=== PATIENT | male | born 2000 | race Caucasian/White ===

== ENCOUNTER 2020-02-18 15:13 | Emergency (ER) | payer OTHER, SELFPAY ==
[2020-02-18 15:23] VITALS: BP 137/77; PULSE 93; RESP 18; TEMP 36.8; O2SAT 98
--- NOTE | 2020-02-18 16:04 | ED.MALEGU ---
HPI - Male Genitourinary General Chief complaint: Urogenital-Male Stated complaint: std testing Time Seen by Provider: 02/18/20 15:49 Source: patient, RN notes reviewed and police Mode of arrival: ambulatory Limitations: no limitations History of Present Illness HPI Narrative: Patient presents today requesting STD testing. States that he does not have any symptoms. He has a new partner that he has not yet had intercourse with, that would like him to get tested prior to them having intercourse initially. States that this new partner does not have any symptoms at this time. Patient has been instructed that we can perform gonorrhea, chlamydia, and trichomonas, but no other tests here. Patient would like to proceed with those test today. Patient had unprotected intercourse with a different partner approximately 2 months ago, but none since that time. MD Complaint: other (Requesting STD testing) Related Data Home Medications Medication Instructions Recorded Confirmed No Home Medications 02/18/20 02/18/20 Allergies Allergy/AdvReac Type Severity Reaction Status Date / Time No Known Allergies Allergy Verified 02/18/20 15:32 Review of Systems Review of Systems: Narrative: CONSTITUTIONAL: Denies body aches, fever, chills, or sweats. EYES: Denies visual changes, redness, or discharge. ENT: Denies rhinorrhea, congestion, sore throat, or otalgia. CARDIOVASCULAR: Denies chest pain, palpitations, or edema. RESPIRATORY: Denies cough or dyspnea. GASTROINTESTINAL: Denies abdominal pain, nausea, vomiting, or diarrhea. GENITOURINARY: Denies dysuria or hematuria. SKIN: Denies rash, itching, or wounds. MUSCULOSKELETAL: Denies back pain, joint pain, or myalgia. NEUROLOGIC: Denies headache, numbness, tingling, or weakness. PSYCH: Denies depression or anxiety. PMFSH Comments At time of signature, I have reviewed and agree with nursing past medical, surgical, social and family history unless otherwise noted. Please see nursing chart for further information. There is no relevant family history pertinent to the presenting complaint Exam Narrative: Exam Narrative: GENERAL: Well-appearing, well-nourished, and in no acute distress. HEAD: Normocephalic, atraumatic. EYES: EOMI. No redness or drainage. Conjunctivae normal. ENT: Mucous membranes pink and moist. NECK: Normal AROM. CHEST: No respiratory distress. : Deferred MUSCULOSKELETAL: No bony tenderness. EXTREMITIES: Normal range of motion. No edema. SKIN: Warm, dry, no rash. Capillary refill normal. Normal skin turgor. NEURO: No focal deficits. Alert and oriented x3. Gait steady. PSYCH: Normal affect. No signs of depression or anxiety. Course Vital Signs Vital signs: Vital Signs Temperature 98.2 F 02/18/20 15:23 Pulse Rate 93 02/18/20 15:23 Respiratory Rate 18 02/18/20 15:23 Blood Pressure 137/77 02/18/20 15:23 Pulse Oximetry 98 02/18/20 15:23 Temperature 98.2 F 02/18/20 15:23 Pulse Rate 93 02/18/20 15:23 Respiratory Rate 18 02/18/20 15:23 Blood Pressure 137/77 02/18/20 15:23 Pulse Oximetry 98 02/18/20 15:23 Reviewed. Pt has been instructed to follow up with his PCP regarding his elevated blood pressure today. MDM - Male Genitourinary MDM Narrative Medical decision making narrative: Long discussion with patient regarding capabilities of [facility], expectations for results. He opts to be treated if results are positive instead of being treated at this time. Understands that if he wants to be fully screened before entering into a new sexual relationship, he needs to seek further testing at the resources provided. He agrees. Differential Diagnosis Differential diagnosis: Likely other (Gonorrhea, chlamydia, trichomonas, STD screening) Lab Data Labs: Urine Characteristics Clear Critical Care Time Critical Care Time Critical Care Time: No Discharge Plan Disch
== END 2020-02-18 16:10 | disposition home or self-care (01) ==
PROVIDERS: Emergency Provider Nurse Practitioner; PCP Pediatrics
DX: Z11.3 Encounter for screening for infections with a predominantly sexual mode of transmission (principal)
CPT/HCPCS: 87491; 87591; 87661; 99203; G0463

== ENCOUNTER 2022-06-06 12:57 | Outpatient (CLI) | payer OTHER, SELFPAY ==
--- NOTE | ~2022-06-06 | CT_ITS ---
CT of the Abdomen and Pelvis: Indication: Abdominal pain Technique: 2.5 mm axial scans were obtained through the abdomen and pelvis following intravenous adm inistration of 100 cc of Omnipaque 350. Dose reduction technique was used on this scan by utilizing a utomated exposure control and iterative reconstruction technique. The dose-length product (DLP) was 1 551.83 mGy-cm. Findings: Scans through the lung bases are unremarkable. The liver, spleen, pancreas, gallbladder, adrenals and kidneys are within normal limits. No evidence of aortic aneurysm. No lymphadenopathy. No bowel obstruction or bowel wall thickening. There is no evidence to suggest acute appendicitis. Images through the pelvis were performed. Urinary bladder unremarkable. Prostate gland and seminal ve sicles are unremarkable No ascites. Impression: No significant abnormalities seen. Reviewed, dictated and finalized at [facility]. Impression: No significant abnormalities seen.
== END 2022-06-06 12:58 | disposition home or self-care (01) ==
PROVIDERS: PCP Emergency Medicine; Visit Provider Emergency Medicine
DX: R10.9 Unspecified abdominal pain (principal); R10.84 Generalized abdominal pain
CPT/HCPCS: 74177; Q9967

== ENCOUNTER 2023-05-08 12:37 | Emergency (ER) | payer OTHER, SELFPAY ==
[2023-05-08 12:47] VITALS: BP 147/88; PULSE 104; RESP 20; TEMP 36.4; O2SAT 100
[2023-05-08 15:25] VITALS: BP 156/99; PULSE 96; RESP 17; O2SAT 100
[2023-05-08 17:58] VITALS: BP 132/87; PULSE 88; RESP 15; O2SAT 100
--- NOTE | 2023-05-08 18:57 | ED.GENADULT ---
HPI - General Adult General Chief complaint: Wound/Laceration Stated complaint: TAIL BONE INCISION IS BLEEDING Time Seen by Provider: 05/08/23 17:03 Source: patient Mode of arrival: ambulatory Limitations: no limitations History of Present Illness HPI narrative: This is a 22-year-old male who presents to the ED chief complaint of open surgical wound for the past couple of days. Reports bleeding from the wound area. Patient reports he had history of pilonidal cyst that was operated on 2 years ago. He reports intermittent problems with this incision site ever since. Patient reports the initial procedure was unsuccessful and he ended up developing an abscess in the area. He reports he had a 2nd procedure but is feels like the wound has never been healed since. He is here today because it started bleeding. Denies any nausea, vomiting, fevers, chills. Denies any surrounding redness or swelling in the area. States it is minimally painful. Related Data Allergies Allergy/AdvReac Type Severity Reaction Status Date / Time No Known Allergies Allergy Verified 05/08/23 16:29 Review of Systems Review of Systems: All systems as dictated in HPI Exam Narrative: GENERAL: Well-appearing, well-nourished, and in no acute distress. HEAD: Normocephalic, atraumatic. EYES: PERRLA and EOMI. ENT: Nares clear, no rhinorrhea or epistaxis. Mucous membranes moist. Oropharynx without tonsillar hypertrophy exudate or other lesions. NECK: Supple. No adenopathy or masses. CHEST: No respiratory distress. Clear to auscultation. No wheezes rales or rhonchi HEART: Regular rate and rhythm. No murmur heard. Normal peripheral pulses. ABDOMEN: Soft, nontender, nondistended, normal active bowel sounds. MSK: Normal range of motion. No edema. SKIN: There is an open 2 cm record, linear wound to the sacral/intergluteal cleft. No surrounding redness. No warmth or tenderness. No purulent drainage. No active bleeding. NEURO: Alert and oriented x3. No focal deficits. PSYCH: Normal mood and affect. Course Vital Signs Vital signs: Vital Signs Temperature 97.5 F L 05/08/23 12:47 Pulse Rate 104 H 05/08/23 12:47 Respiratory Rate 20 05/08/23 12:47 Blood Pressure 147/88 H 05/08/23 12:47 Pulse Oximetry 100 02/13/24 12:47 Temperature 97.5 F L 05/08/23 12:47 Pulse Rate 81 05/08/23 19:38 Respiratory Rate 17 05/08/23 19:38 Blood Pressure 133/81 05/08/23 19:38 Pulse Oximetry 100 05/08/23 19:38 Medical Decision Making MDM Narrative Medical decision making narrative: This is a 22-year-old male who presents to the ED with chief complaint an open ulcer surgical wound to the sacral area. History of pilonidal cysts. Vitals are normal. Exam does show 2 cm open wound to the sacral area. There is no evidence of infection on exam. No bleeding currently. Advise the patient that he will need to have this looked at by a surgeon. Do not feel comfortable primarily closing this wound in the emergency department today. We will place some Surgicel and gauze dressing. Surgical referral given. Prophylactic antibiotics started. pt will be discharged in stable condition. Return precautions given and supportive measures discussed. Pt is understanding and agreeable with plan for discharge and follow-up with PCP/surgeon. Vital Signs Vital Signs: Vital Signs Temperature 97.5 F L 05/08/23 12:47 Pulse Rate 104 H 05/08/23 12:47 Respiratory Rate 20 05/08/23 12:47 Blood Pressure 147/88 H 05/08/23 12:47 Pulse Oximetry 100 05/08/23 12:47 Temperature 97.5 F L 05/08/23 12:47 Pulse Rate 81 05/08/23 19:38 Respiratory Rate 17 05/08/23 19:38 Blood Pressure 133/81 05/08/23 19:38 Pulse Oximetry 100 05/08/23 19:38 Discharge Plan Discharge Clinical Impression: Open wound of skin Patient Disposition: Home, Self-Care Condition: Stable Instructions: Antibiotic Form Additional Instructions: E
[2023-05-08] MEDS: CELLULOSE OXIDIZED 2 x 3 INCH 1 PKT XX (19:15)
[2023-05-08 19:38] VITALS: BP 133/81; PULSE 81; RESP 17; O2SAT 100
== END 2023-05-08 19:39 | disposition home or self-care (01) ==
PROVIDERS: Emergency Provider Physician Assistant; PCP Emergency Medicine
DX: S31.809A Unspecified open wound of unspecified buttock, initial encounter (principal); X58.XXXA Exposure to other specified factors, initial encounter
CPT/HCPCS: 99283

== ENCOUNTER 2024-05-30 09:14 | Emergency (ER) | payer OTHER, SELFPAY ==
[2024-05-30 09:20] VITALS: BP 132/87; PULSE 90; RESP 16; TEMP 36.3; O2SAT 100
--- OUTSIDE RECORDS SUMMARY | 2024-05-30 09:38 | XMS_ITS | Continuity of Care Document ---
Author Organization [facility] Address [address] [place] [address] [place] [address] Phone Care Team Providers Care Show Jumping Instructor Name Role Phone Ed Root MD Unavailable Unavailable Allergies, Adverse Reactions, Alerts Substance Reaction Status Criticality No Known Allergies Active No Inform ation Medications Medication Instructions Dosage Effective Dates (start - stop) Status Comments Topamax 50 mg tablet take 1 tablet by oral route 2 times every day 50 MG - Active avoid driving or operate machines prochlorperazine maleate 10 mg tablet take 1 tablet by oral route every 6 hours as needed 10 MG - Active PRN for nausea, avoid driving or operate machines Procedures Procedure Date OFFICE/OUTPATIENT VISIT, EST OFFICE/OUTPATIENT VISIT, EST OFFICE/OUTPATIENT VISIT, EST OFFICE/OUTPATIENT VISIT, EST OFFICE/OUTPATIENT VISIT, EST OFFICE/OUTPATIENT VISIT, EST OFFICE/OUTPATIENT VISIT, EST PREV VISIT, NEW, AGE 18-39 OFFICE/OUTPATIENT VISIT, NEW Advance Directives Directive Yes / No Effective Date File Name No Information Encounters Encounter Description Practice Location Reason(s) For Visit Diagnoses Date Provider Providers Copied on Encounter OFFICE/OUTPA TIENT VISIT, EST [facility], [address] [place], [id number], [place] tel:[phone] [facility] Medicine pituitary1 (chief complaint) Migraine without aura, not intractable, without status migrainosusBenign neoplasm of pituitary glandAbnormal weight gain 4 Root Ed. [address], [place], [place], [id number] , [place]. tel:[phone] OFFICE/OUTPA TIENT VISIT, [facility], [address], [place], [place], [address], [place] tel:[phone] [facility] leg (chief complaint) foot 1 (chief complaint) Athlete's footEdemaBenign neoplasm of pituitary glandMigraine without aura, not intractable, without status migrainosus 4 Root Ed. [address], [place], [place], [id number] , [place]. tel:[phone] OFFICE/OUTPA TIENT VISIT, [facility], [address], [place], [place], [id number], [place] tel:[phone] [facility] leg weakness1 (chief complaint) Benign neoplasm of pituitary glandMuscle weaknessParesthesia of skin 4 Dk Ed. [address], [place], [place], [address] , [place]. tel:[phone] OFFICE/OUTPA TIENT VISIT, [facility], [address], [place], [place], [address], [place] tel:[phone] [facility] GERD1 (chief complaint) knee pain1 (chief complaint) GERD w/o esophagitisOccult blood in stoolPain in right knee 3 Dk [address], [place], [place], [address] , [place]. tel:[phone] OFFICE/OUTPA TIENT VISIT, [facility], [address], [place], [place], [address], [place] tel:[phone] [facility] blood in stool1 (chief complaint) Generalized abdominal painOccult blood in stool 3 Root [address]. [address], [place], [place], [id number] , [place]. tel:[phone] OFFICE/OUTPA TIENT VISIT, [facility], [address], [place], [place], [address], [place] tel:[phone] [facility] shoulder pain1 (chief complaint) ganglion cyst1 (chief complaint) HTN (chief complaint) headache1 (chief complaint) Essential (primary) hypertensionChronic migraine without aura, not intractable, without status migrainosusGanglion of right handPain in right shoulder Nov-0 2 Root Ed. [address], [place], [place], [address] , [place]. [phone] OFFICE/OUTPA TIENT VISIT, [facility], [address], [place], [place], [address], [place] tel:[phone] [facility] migraine1 (chief complaint) HTN (chief complaint) shoulder pain1 (chief complaint) ganglion (chief complaint) Pain in right shoulderChronic migraine without aura, not intractable, without status migrainosusEssentia l (primary) hypertensionGanglio n of right hand Sep-2 2 Root Ed. [address], [place], [place], [address] , [place]. [phone] PREV VISIT, NEW, AGE 18-39 [facility], [address], [place], [place], [address], [place] tel:[phone] [facility] physical (chief complaint) Encounter for general adult medical exam w abnormal findingsChronic migraine without aura, not intractable, without status migrainosusEssentia l (primary) hypertensionPain in right shoulder Oct- 2 D[address], [place], [place], [address] , [place]. tel:[phone] Family History Family Member Type Diagnosis Age At Onset Father Problem unknown Mother Problem Migraines Sister Problem Alive and well Payers Payer name Insurance type Covered republican ID Authoriza tion(s) No Information Social History Type Description Quantity Date Captured Comments Alcohol Use Details Caffeine Use Details soda 5 cups per day Tobacco Use Status Cigarette smoker Smoking Status Current every day smoker 2023 Sex Male Vital Signs Date / Time: Height Weight BMI Pulse Rate Blood Pressure Temperature Respiratory Rate Body Surface Area Head Circumference BMI percentile Pulse Ox Inhaled Ox 6:11 PM 71.00 in 284.00 lbs 39.6 1 kg/m eter (2) 72 /min 110/78 mm[Hg] 97.9 F 16 /min Chief Complaint And Reason For Visit From encounter dated '11/14/2023 17:33'. pituitary1 (chief complaint). Description: Pt has MRI evidence of hyper enhancing focus area aroundpituitary gland. Pt denies any nipple discharge Pt denies any vision change. There is no mass effects on the MRI. Pt does have chronic migraine headache. Pt denies any head injury or waking up at night with headache Pt c/o photophobia and nausea with headache. Pt denies any worsening headache. Plan Of Treatment Date Type Action Status Referral Ordered: Jose Maria Meredith -[facility]opathic [facility]opathic Physicians : Psychiatry & Neurology : Neurology (related to Migraine without aura, not intractable, without status migrainosus) ordered Referral Referred To: Jose Maria Meredith [address] [facility]
[address] [place], [place] [phone] Ordered: Referrals: Allopathic & Osteopathic Physicians : Psychiatry & Neurology : Neurology. Jose Maria Meredith. Evaluate and treat ordered Referral Ordered: MRI BRAIN W/O & W/DYE ordered Referral Ordered: KWADWO CALLAHAN -[facility] Physicians : Orthopaedic Surgery (related to Pain in right knee) ordered Referral Referred To: KWADWO CALLAHAN [address] [place], [place], [phone] Ordered: Referrals: Allopathic & Osteopathic Physicians : Orthopaedic Surgery. KWADWO CALLAHAN. Evaluate and treat ordered Referral Ordered: CT ABDOMEN&PELVIS W/CONTRAST ordered Referral Ordered: Physical Therapy (related to Pain in right shoulder) ordered Referral Ordered: MRI JOINT UPR EXTREM W/O DYE Right shoulder ordered Referral Referred To: Padma MIMS, Chin Yadav [address] [facility]
[address] [place], [place], [id number] Ordered: Referrals: Padma MIMS, Chin Yadav. Evaluate and treat ordered Referral Referred To: Physical Therapy Ordered: Referrals: Physical Therapy. Evaluate and treat ordered Referral Ordered: US EXAM, EXTREMITY ordered Referral Referred To: Ana MIMS, Celestino Mcginnis [address]
[place] [address] [place] [address], [phone] Ordered: Referrals: Ana MIMS, Celestino Mcginnis. Evaluate and treat ordered History Of Present Illness Encounter Date Complaint History Of Prese nt Illness pituitary1 Pt has MRI evide nce of hyper enhancing focus area around pituitary gland. Pt denies any nipple discharge Pt denies any vision change. There is no mass effects on the MRI. Pt does have chronic migraine headache. Pt denies any head injury or waking up at night with headache Pt c/o photophobia and nausea with headache. Pt denies any worsening headache. leg Pt no longer has right leg and arm numbness and tingling and he never did MRI of brain or lab work. Pt does have pituitary lesions Pt has intermittent migraine headache. pt went to [facility] ER two weeks ago and he had another negative head CT and was sent home and on some migraine medication and he does not remember the name. He denies any recurrent headache foot 1 Pt notices plant ar right foot sore which is painful but not itching Pt does wear steel toe boot at work all day. Pt also notices bilateral LE edema, worse on left side Pt denies any paresthesia or claudication Pt denies any drainage of the sores. pt notices some pain around the sores. pt denies any cold extremity leg weakness1 pt c/o acute ons et of right leg numbness and weakness around the night of 02/18/23. Pt denies any back pain or neck pain Pt denies any speech issue, confusion or headache Pt went to sleep and woke up and symptoms got worse in the morning with whole right leg weakness and numbness and he had to get help with ambulation and hopping around with left leg and made to ER. Pt was seen at [facility] ER and he had normal CTA of head and neck and MRI of brain did show 6 mm hypoenhancing focus in the posterior right sella without acute stroke. Pt was discharged home and he has appointment with neurology around July of 2023. He states that his right leg weakness and numbness completely resolved while in the ER Pt abdulkadir any recurrent episodes since the initial episode. GERD1 Pt has intermitt ent GERD .Pt is on protonix daily from GI. Pt had EGD and colonoscopy done last month and EGD was ok and colonoscopy showed hemorrhoid and benign polyp and he was told to repeat colonoscopy when he was 45. Pt denies any abd pain or diarrhea or dark stool. CT ok as well. knee pain1 Pt c/o acute rig ht knee pain since two days ago. Pt c/o sharp pain right knee with right knee popping and some right knee numbness. Pt denies any injury Pt denies any calf pain. 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 Pt states that his right knee did swell up two days ago which resolved. Pt state that he has previous injury to right knee during wresting match 5 years ago and he did have MRI done which showed partially torn right meniscus and he did PT for 3 months and pain resolved. Pt states that he does feel intermittent right knee pain but not as bad as since 2 days ago. blood in stool1 pt c/o dark bloo d mixed with stool since last Sunday. Pt states that he notices 4-5 times when he has BM during last week. Pt notices mild periumbilical abd pain. pt denies any nausea, vomiting. Pt notices mild loose stool as well. Pt denies any fever. Pt went to ER last week and he had blood work and rectal exam and he was started on protonix and he has oxana with GI this Sunday. Pt states that he was not anemic. He also had negative rectal exam per patient. He did not do any imaging study. Pt states that his abdominal pain persisted and he feels mild dizziness as well. he has 7/10 sharp periumbilical abdominal pain. he has normal appetite. He denies any fever. He denies any GERD or urinary symptoms or flank pain ganglion cyst1 Pt has ganglion cyst between 2nd and 3rd finger dorsally Pt notices mild pain sometimes Pt has not heard form hand speciality yet HTN His bp is ok tod ay Pt denies any chest pain or headache headache1 Pt has not been having headache Pt never started topamax shoulder pain1 Pt c/o persisten t right shoulder pain, worse with movement. Pt had negative shoulder x ray. Pt had shoulder ultrasound done which was benign. Pt has appointment with ortho in 2 weeks. Pt had MRI right shoulder which showed only mild edema of the infraspinatus muscle and nonspecific minimal marrow edema of distal clavicle. pt took off work since last Sunday due to right shoulder pain and he is ready to return to work on sunday. migraine1 Pt has chronic m igraine headache. Pt never picked up topamax. Pt states that his migraine headache improved on his own. Pt only has been having headache maybe once per week .Pt denies any head injury or waking up at night with headache HTN His bp is stable today. Pt denies any chest pain shoulder pain1 Pt c/o persisten t right shoulder pain, worse with movement. Pt had negative shoulder x ray. Pt had shoulder ultrasound done which was benign. 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 Pt c/o pain, right hand stiffness and inability to open and close right hand completely due to above. Pt denies any redness or warmth physical Pt needs annual physical Pt injured right shoulder in the process. Pt had negative x ray at ER and was told that he may have rotator cuff issue and he never followed up with any doctor. Pt c/o intermittent right shoulder pain since the accident but seems getting worse since two months ago. Pt denies any new injury Pt also notices numbness and tingling feeling radiating down to right arm and hand as well. pt denies any neck pain Pt denies any shoulder swelling or deformity. Pt states that he experience burning and sting feeling inside right shoulder all the time now. Pt states that he was sent home from work yesterday due to worsening right shoulder pain and right arm tingling. pt notices mild weakness right arm as well. Pt has chronic migraine headache Pt c/o throbbing headache behind both eyes with photophobia without nausea. Pt denies any trigger factor. Pt has migraine about 3 times per week Pt denies any head injury or waking up at night with headache Pt typically takes some OTC meds and it takes almost one day to go away. Pt denies any acute headache Pt has been having migraine since 10 years ago. His mom also has migraine. Instructions Date Instruction Additional Infor mation No Information Assessments Type Assessment Date assessment Migraine without aur a, not intractable, without status migrainosus assessment Benign neoplasm of pituitary gla nd assessment Abnormal weight gain Mental Status Date Cognitive Assessment Orientation - [place] ed to time, place, person, situation.
--- OUTSIDE RECORDS SUMMARY | 2024-05-30 09:38 | XMS_ITS | Referral Summary ---
Author Organization [facility] Address [address] [place] [address] Care Team Providers Care Advanced Practice Professional Name Role Phone Leon Russell MD Unavailable [phone] Ed Root MD Primary Care Provider [phone] Allergies No known active allergies Medications pantoprazole DR (PROTONIX) 40 mg EC tablet Take 1 tablet (40 mg total) by mouth daily 90 tablet 3 07/01/19 23 Active methylcellulose , laxative, (CITRUCEL) 500 mg tablet Take 2 tablets (1,000 mg total) by mouth daily 60 tablet 11 07/01/19 23 Active aspirin 81 mg enteric coated tablet Take 1 tablet (81 mg total) by mouth daily 30 tablet 02/20/20 23 Active ketoconazole (NIZORAL) 2 % cream Apply topically daily 15 g 04/25/19 24 Active bacitracin 500 unit/gram ointment Apply topically 2 (two) times a day 120 g 04/25/19 24 Active naproxen (NAPROSYN) 500 mg tabletIndicatio ns:Migraine without aura and without status migrainosus, not intractable Take 1 tablet (500 mg total) by mouth 2 (two) times a day with meals P.r.n. headache. Collaborating physician Israel Tam MD 20 tablet 09/26/19 24 Active prochlorperazin e (COMPAZINE) 10 mg tabletIndicatio ns:Migraine without aura and without status migrainosus, not intractable Take 1 tablet (10 mg total) by mouth 2 (two) times a day as needed for nausea (And headache.) Collaborating physician Israel Tam MD 10 tablet 1 09/26/19 24 Active diphenhydrAMINE (BENADRYL) 25 mg capsuleIndicati ons:Migraine without aura and without status migrainosus, not intractable Take 1 tablet/capsule (25 mg total) by mouth every 6 (six) hours Take with each dose of prochlorperazine to help alleviate headache and prevent jitteriness. Collaborating physician Israel Tam MD 30 tablet/caps ule 09/26/19 24 Active Active Problems Problem Noted Date Diagnosed Date Migraine without aura and wi thout status migrainosus, not intractable 09/26/2023 Rectal inflammation 06/30/2022 Irritable bowel syndrome wit h both constipation and diarrhea 06/30/2022 Hyperplastic polyp of sigmoid colon 06/30/2022 Gastroesophageal reflux disease 06/09/2022 Vapes nicotine containing substance 06/09/2022 BRBPR (bright red blood per rectum) 06/09/2022 Overview (06/09/2022): Added automatically from request for surgery [id number] Generalized abdominal pain 06/09/2022 Overview (06/09/2022): Added automatically from request for surgery [id number] Acute diarrhea 06/09/2022 Overview (06/09/2022): Added automatically from request for surgery [id number] Ganglion cyst 03/10/2022 Abscess 03/02/2020 Pilonidal cyst 02/18/2020 Overview (02/18/2020): Added automatically from request for surgery [id number] Adjustment disorder with disturbance of conduct 12/02/2019 Assessment & Plan (12/02/2019 12:54 PM CDT): 19-year-old male who presented to the emergency department due to suicidal ideation with plan to overdose in the context of a fight with his family. The patient has no history of psychiatric admission and has never seen a psychiatrist but has been seen by a therapist in the past. Patient has a history of behavioral issues in adolescence including outbursts and poor coping/impulsivity (punching lopez when upset). Unclear hx of prior SA but possible prior OD. Confounding the patient's presentation is a 3 year history of opioid use disorder. Upon evaluation, patient now denies suicidal ideation, hallucinations, homicidal ideation, symptoms of depression, augie. Denied poor sleep, anhedonia, feelings of guilt or worthlessness, feelings of helplessness and hopelessness, poor appetite. Stated that he became acutely angry and upset in the setting of fighting with his family which led to suicidal ideation that has now resolved. Endorsed having several plans for the future, including joining a sports team, getting in shape, and spending time with his support system. He is agreeable to outpatient follow-up, continuing therapy as an outpatient. Severe opioid use disorder 12/02/2019 Assessment & Plan (12/02/2019 12:42 PM CDT): The patient displays a problematic pattern of heroin use leading to clinically significant impairment/distress, with a 3 year history of use during which heroin has been taken in larger amounts/over a larger period than intended, recurrent use has interfered in ability to fulfill major obligations at work/school/home, use has continued despite persistent/recurrent social/interpersonal problems caused/exacerbated by use, important social/occupational/recreational activities have been given up/reduced because of use, use has continued despite knowledge of persistent/recurrent physical/psychological problem likely caused/exacerbated by use, tolerance (increasing amounts required to achieve same effect) and withdrawal. This is consistent with severe narcotics use disorder. -Discharge with opioid use disorder community resources and narcan emergency kit Pain of hand 05/22/2016 Overview (06/29/2016): Hand pain Social History Tobacco Use Types Packs/Day Years Used Date Smoking Tobacco: Former Smokeless Tobacco: Current Tobacco Cessation:Ready to Q uit: Not Asked; Counseling Given: Not Answered Alcohol Use Standard Drinks/Week Comments Not Currently 0 (1 standard drink = 0.6 oz pur e alcohol) AUDIT-C Answer Date Recorded Q1: How often do you have a drink containing alc ohol? Monthly or less 06/09/2022 Q2: How many drinks containi ng alcohol do you have on a typical day when you are drinking? 1 or 2 06/09/2022 Q3: How often do you have si x or more drinks on one occasion? Never 06/09/2022 PHQ-2 Answer Date Recorded PHQ-2 Total Score (If total score is 3 or more points, staff should administer the PHQ-9) 2 12/01/2019 Personal Safety Answer Date Recorded Have you ever been in or are you currently in a harmful physical or emotional relationship or is someone making you feel afraid or unsafe? 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 Gender Identity Not on file Sexual Orientation Not on file Last Filed Vital Signs Vital Sign Reading Time Taken Comments Blood Pressure 150/81 09/26/2023 2:45 PM CDT Pulse 73 09/26/2023 2:45 PM CDT Temperature 36.9 C (98.4 F) 09/26/2023 2:45 PM CDT Respiratory Rate 16 09/26/2023 2:45 PM CDT Oxygen Saturation 98% 09/26/2023 2:45 PM CDT Inhaled Oxygen Concentration - - Weight 129.3 kg (285 lb) 09/26/2023 2:45 PM CDT Height 180.3 cm (5' 11 ) 09/26/2023 2:45 PM CDT Body Mass Index 39.75 09/26/2023 2:45 PM CDT Plan of Treatment Not on file Insurance CHOICE PLUS CIGNA UHC CHOICE PLUS CIGNA CIGNA Advance Directives For more information, please contact: [phone] * Full Code (Latest Code Status on File) Date Activated Date Inactivated Comments 06/19/2022 1:26 PM 06/19/2022 8:43 PM * Full Code Date Activated Date Inactivated Comments 06/19/2022 1:26 PM 06/19/2022 1:26 PM * Full Code Date Activated Date Inactivated Comments 03/02/2020 5:14 AM 03/05/2020 7:37 PM * Full Code Date Activated Date Inactivated Comments 12/01/2019 5:17 PM 12/02/2019 7:04 PM Care Teams Advanced Practice Professional Relationship Specialty Start Date End Date Ed Root MD [address] [place] [address] PCP - General 11/29/21 Leon Russell MD Surgeon General Surgery 03/05/20
--- OUTSIDE RECORDS SUMMARY | 2024-05-30 09:38 | XMS_ITS | Clinical Summary ---
Author Organization [facility] Address [address] [place] [address] Care Team Providers Care Residential Designer Name Role Phone Kenyon Pinedo MD Primary Care Provider [phone] Allergies No known active allergies Medications No known medications Active Problems No known active problems Family History Medical History Relation Comments No Known Problems Mother Relation Status Comments Father Alive Mother Alive Social History Tobacco Use Types Packs/Day Years Used Date Smoking Tobacco: Never Smokeless Tobacco: Never Alcohol Use Standard Drinks/Week Comments Not Currently 0 (1 standard drink = 0.6 oz pur e alcohol) Sex and Gender Information Value Date Recorded Sex Assigned at Not on file Legal Sex Male 8:49 PM CDT Gender Identity Not on file Sexual Orientation Not on file Last Filed Vital Signs Vital Sign Reading Time Taken Comments Blood Pressure 161/103 07/06/2021 2:39 AM CDT Pulse 92 07/06/2021 2:39 AM CDT Temperature 36.8 C (98.3 F) 07/06/2021 2:39 AM CDT Respiratory Rate 16 07/06/2021 2:39 AM CDT Oxygen Saturation 100% 07/06/2021 2:39 AM CDT Inhaled Oxygen Concentration - - Weight 111.6 kg (246 lb) 07/06/2021 2:39 AM CDT Height 180.3 cm (5' 11 ) 07/06/2021 2:39 AM CDT Body Mass Index 34.31 07/06/2021 2:39 AM CDT Plan of Treatment Health Maintenance Due Date Last Done Comments Annual Physical 11/16/2003 DTaP, Tdap and Td Vaccines (6 - Tdap) 11/16/2011 10/27/2005, 02/14/2002, 05/23/2001, Additional history exists Meningococcal B Vaccine (1 of 2 - Standard) 2016 Hepatitis C 2018 Hepatitis B Vaccines (1 of 3 - 19+ 3-dose series) 11/16/2019 COVID-19 Vaccine ( - 2023- season) 2023 Influenza Adult (#1) 2023 Meningococcal Vaccine Completed 09/19/2017 HPV Vaccines Completed 03/27/2018, 10/25, 09/19/2017 Pneumococcal Vaccine: Pediatrics (0 to 5 Years) and At-Risk Patients (6 to 64 Years) Aged Out No longer eligible based on patient's age to complete this topic RSV Immunizations Under 20 Months Aged Out No longer eligible based on patient's age to complete this topic Insurance [employer] Care Teams Residential Designer Relationship Specialty Start Date End Date Kenyon Pinedo MD [address] [place] [phone] PCP - General FAMILY PRACTICE 12/24/20
--- OUTSIDE RECORDS SUMMARY | 2024-05-30 09:38 | XMS_ITS | Continuity of Care Document ---
Author Organization [facility] Address [address] [place] [address] Phone Care Team Providers Care Cinema Operator Name Role Phone Smith MIMS, Jamila Unavailable Unavailable Fredy RN, Nara Unavailable Unavailable Advance Directives Directive Yes / No Effective Date File Name No Information Encounters Encounter Description Practice Location Reason(s) For Visit Diagnoses Date Provider Providers Copied on Encounter [facility] , [address], [place], [place], [id number], tel:[phone] [employer] [facility] [place] No Information Smith Marino. [address], [place], [place], [address], . tel:[phone] Consulting Provider: Nara Daniel, [address], [place], [address]. tel:[phone] Family History Family Member Type Diagnosis Age At Onset No Information Payers Payer name Insurance type Covered republican [...]
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
--- NOTE | 2024-05-30 09:39 | ED.NAVMDI ---
HPI - Nausea/Vomiting/Diarrhea General Chief complaint: Nausea/Vomiting/Diarrhea Stated complaint: Abdominal Pain/Cough/Diarrhea Time Seen by Provider: 05/30/24 09:39 Source: patient Mode of arrival: ambulatory Limitations: no limitations History of Present Illness HPI Narrative: 23-year-old male presents with complaint of cough, congestion, fatigue, body aches, chills, low-grade fever for 3 days. Also reports diarrhea. 2-3 episodes a day. Not taking any badg-tqu-bknxeyr medications to treat his symptoms. Needs work note. All systems reviewed and negative except as noted above. Related Data Home Medications ?Medication ?Instructions ?Recorded ?Confirmed ?Last Taken ?Type acetaminophen 325 mg capsule 325 mg PO Q6H PRN 05/10/23 12/11/23 Unknown History (Tylenol) Allergies Allergy/AdvReac Type Severity Reaction Status Date / Time No Known Allergies Allergy Verified 12/07/23 08:51 Review of Systems Review of Systems: CONSTITUTIONAL: reports fever, chills, or sweats. EYES: Denies visual changes, redness, or discharge. ENT: Reports rhinorrhea, congestion, sore throat. Denies otalgia. CARDIOVASCULAR: Denies chest pain, palpitations, or edema. RESPIRATORY: reports cough . Denies dyspnea. GASTROINTESTINAL: Denies abdominal pain, nausea, vomiting. Reports diarrhea. GENITOURINARY: Denies dysuria or hematuria. SKIN: Denies rash or itching. MUSCULOSKELETAL: Denies back pain, joint pain, or myalgia. NEUROLOGIC: Denies headache, numbness, or weakness. PSYCHIATRIC: Denies anxiety or depression. All other systems reviewed are negative, except as documented in HPI. [facility] Past Medical History Medical History (Updated 05/30/24 @ 09:56 by Karin Garcia NP) Anxiety Depression Surgical History Surgical History (Updated 12/07/23 @ 09:10 by Evelyn Byrd) History of excision of pilonidal cyst ~ end 2019 History of tonsillectomy and adenoidectomy Family History Family History Other Cancer Diabetes mellitus Hypertension Social History Social History (Updated 12/07/23 @ 08:53 by Constanza Wren CMA) Smoking status: Current every day smoker Tobacco type: e-cigarettes/vaping Alcohol intake: current Alcohol use details: socially Do You Feel Safe in your Home?: Yes Lack of Transportation: No Lack of Food: Sometimes True Current Housing: I Have Housing Concerned About Future Housing: No Difficulty Paying Gas/Electric Bills: No Difficulty Paying for Meds: No Currently Unemployed: No Education: High School Diploma/GED Difficulty w/ Childcare or Family Care: No Living arrangements: with family Occupation/Education: occupation 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 There is no relevant family history pertinent to the presenting complaint. Exam Narrative: GENERAL: This is a well-nourished, well-developed patient, in no apparent distress. HEAD: normocephalic, atraumatic. EYES: PERRL. Sclera clear/white. Vision is grossly intact. EARS: External ears normal, auditory canals clear and without drainage, TMs normal without perforation. Hearing grossly intact. NOSE: External nose normal with clear nasal drainage THROAT: Mucous membranes moist, erythema with postnasal drainage NECK: Neck supple, non-tender without lymphadenopathy, masses or thyromegaly. CARDIOVASCULAR: Regular rate and rhythm without murmurs, gallops, or rubs. RESPIRATORY: Clear to auscultation. Breath sounds equal bilaterally. No wheezes, rales, or rhonchi. GASTROINTESTINAL: Abdomen soft, non-tender, nondistended. Bowel sounds are active. No hepato-splenomegaly, or palpable masses. No guarding. SKIN: warm, Dry, intact with no suspicious lesions or rash, good texture and turgor. NEURO: awake, alert, and oriented to person, place and time. There were no obvious focal neurologic abnormalities. EXTREMITIES: No joint tenderness, effusion, or edema noted. Course Course Level of Care: Express Care Visit Vital Signs Vital signs: Vital Signs Temperature 36.3 C L 05/30/24 09:20 Pulse Rate 90 05/30/24 09:20 Respiratory Rate 16 05/30/24 09:20 Blood Pressure 132/87 05/30/24 09:20 Pulse Oximetry 100 05/30/24 09:20 Oxygen Delivery Room Air 05/30/24 09:20 Temperature 36.3 C L 05/30/24 09:20 Pulse Rate 90 05/30/24 09:20 Respiratory Rate 16 05/30/24 09:20 Blood Pressure 132/87 05/30/24 09:20 Pulse Oximetry 100 05/30/24 09:20 Oxygen Delivery Room Air 05/30/24 09:20 reviewed MDM - Nausea/Vomiting/Diarrhea MDM Narrative Medical decision making narrative: patient for influenza. Discussed diagnosis with patient. Recommend jcew-bfl-svobdpq medications to treat symptoms. Patient is well-appearing, nontoxic. Please be advised this is a medical document. It is intended for done-qt-fbyz communication. It is written in medical language and may contain unfamiliar abbreviations or verbiage. Medical documents are intended to carry relevant information, facts as evident, and the clinical opinion of the practitioner at the time of the encounter. This report may have been done utilizing a voice recognition system. Attempts have been made to correct errors. However, there may be uncorrected grammatical, spelling, and recognition errors present. The file time of this note does not necessarily represent the time of service. Lab Data Labs: Lab Results 05/30/24 Range/Units 09:55 POC Influenza A Ag Positive (Negative) POC Influenza B Ag Negative (Negative) POC SARS CoV-2 Ag Negative (Negative) Discharge Plan Discharge Clinical Impression: Influenza A Patient Disposition: Home, Self-Care Condition: Stable Instructions: Influenza (ED) Additional Instructions: you were positive for influenza today. Influenza is a virus and symptoms may last 10-14 days. Taking oypg-wlh-akjxmey medication to treat her symptoms such as DayQuil NyQuil cold and flu. Take as directed on packaging. Take ibuprofen every 6-8 hours as needed for pain and fever. Drink at least 64 oz of water a day. See your doctor if symptoms are not improving. Patient Language: Divehi Prescriptions: No Action acetaminophen [Tylenol] 325 mg capsule 325 mg PO Q6H PRN Follow-up/Referrals: Ed Root MD [Primary Care Provider] - Stand Alone Forms: Work/School Release IP Time of Disposition: 09:56
--- OUTSIDE RECORDS SUMMARY | 2024-05-30 09:43 | XMS_ITS | Continuity of Care Document ---
Author Organization [facility] Address [address] [place] [address] [place] [address] Phone Care Team Providers Care Dental Appliance Repairer Name Role Phone Ed Root MD Unavailable [...] Copied on Encounter OFFICE/OUTPA TIENT VISIT, EST [facility], [address] [place], [id number], [place] tel:[phone] [facility] Medicine pituitary1 (chief complaint) Migraine without aura, not intractable, without status migrainosusBenign neoplasm of pituitary glandAbnormal weight gain 4 Root [address], [place], [place], [address] , [place]. tel:[phone] OFFICE/OUTPA TIENT VISIT, [facility], [address], [place], [place], [address], [place] tel:[phone] [facility] leg (chief complaint) foot 1 (chief complaint) Athlete's footEdemaBenign neoplasm of pituitary glandMigraine without aura, not intractable, without status migrainosus 4 Root Ed[address], [place], [place], [address] , [place]. tel:[phone] OFFICE/OUTPA TIENT VISIT, [facility], [address], [place], [place], [address], [place] tel:[phone] [facility] leg weakness1 (chief complaint) Benign neoplasm of pituitary glandMuscle weaknessParesthesia of skin 4 Dk Ed[address], [place], [place], [address] , [place]. tel:[phone] OFFICE/OUTPA TIENT VISIT, [facility], [address], [place], [place], [address], [place] tel:[phone] [facility] GERD1 (chief complaint) knee pain1 (chief complaint) GERD w/o esophagitisOccult blood in stoolPain in right knee [address], [place], [place], [address] , [place]. tel:[phone] OFFICE/OUTPA TIENT VISIT, [facility], [address], [place], [place], [address], [place] tel:[phone] [facility] blood in stool1 (chief complaint) Generalized abdominal painOccult blood in stool 3 Root [address], [place], [place], [address] , [place]. tel:[phone] OFFICE/OUTPA TIENT VISIT, [facility], [address], [place], [place], [address], [place] tel:[phone] [facility] Medicine shoulder pain1 (chief complaint) ganglion cyst1 (chief complaint) HTN (chief complaint) headache1 (chief complaint) Essential (primary) hypertensionChronic migraine without aura, not intractable, without status migrainosusGanglion of right handPain in right shoulder Nov-0 2 Root [address], [place], [place], [address] , [place]. [phone] OFFICE/OUTPA TIENT VISIT, [facility], [address], [place], [place], [address], [place] tel:[phone] [facility] migraine1 (chief complaint) HTN (chief complaint) shoulder pain1 (chief complaint) ganglion (chief complaint) Pain in right shoulderChronic migraine without aura, not intractable, without status migrainosusEssentia l (primary) hypertensionGanglio n of right hand Sep-2 2 Root [address], [place], [place], [address] , [place]. [phone] PREV VISIT, NEW, AGE 18-39 [facility], [address], [place], [place], [address], [place] tel:[phone] [facility] physical (chief complaint) Encounter for general adult medical exam w abnormal findingsChronic migraine without aura, not intractable, without status migrainosusEssentia l (primary) hypertensionPain in right shoulder Oct- 2 [address], [place], [place], [address] , [place]. tel:[phone] Family History Family Member Type Diagnosis Age At Onset Father Problem unknown Mother Problem Migraines Sister Problem Alive and well Payers Payer name Insurance type Covered green party ID Authoriza tion(s) No Information Social History [...] Referral Referred To: Jose Maria Meredith [address] [facility]
[address] [place], [place] [id number] Ordered: Referrals: Allopathic & Osteopathic Physicians : Psychiatry & Neurology : Neurology. Jose Maria Meredith. Evaluate and treat ordered Referral Ordered: MRI BRAIN W/O & W/DYE ordered Referral Ordered: KWADWO CALLAHAN -Allopathic & Osteopathic Physicians : Orthopaedic Surgery (related to Pain in right knee) ordered Referral Referred To: KWADWO CALLAHAN [address] [place], [place], [phone] Ordered: Referrals: Allopathic & Osteopathic Physicians : Orthopaedic Surgery. KWADWO CALLAHAN. Evaluate and treat ordered Referral Ordered: CT ABDOMEN&PELVIS W/CONTRAST ordered Referral Ordered: Physical Therapy (related to Pain in right shoulder) ordered Referral Referred To: Physical Therapy Ordered: Referrals: Physical Therapy. Evaluate and treat ordered Referral Referred To: Padma MIMS, Chin Yadav [address] [facility]
[address] [place], [place], [id number] Ordered: Referrals: Padma MIMS, Chin Yadav. Evaluate and treat ordered Referral Ordered: MRI JOINT UPR EXTREM W/O DYE Right shoulder ordered Referral Referred To: Ana MIMS, Celestino Nascimento [facility]
[place] [place], [place], [id number] Ordered: Referrals: Ana MIMS, Celestino Mcginnis. Evaluate and treat ordered Referral Ordered: US EXAM, EXTREMITY ordered History Of Present Illness Encounter Date [...] has intermittent migraine headache. pt [facility] ER two weeks ago and he had [...] made to ER. Pt was seen at [facility] ER and he had normal CTA of [...] Mental Status Date Cognitive Assessment Orientation - Troy ed to time, place, person, situation.
--- OUTSIDE RECORDS SUMMARY | 2024-05-30 09:43 | XMS_ITS | Continuity of Care Document ---
Author Organization [facility] Address [address] [place] [address] Phone Care Team Providers Care Vocational Instructor Name Role Phone Smith MIMS, Jamila Unavailable Unavailable Fredy RN, Nara Unavailable Unavailable Advance Directives Directive Yes / No Effective Date File Name No Information Encounters Encounter Description Practice Location Reason(s) For Visit Diagnoses Date Provider Providers Copied on Encounter [facility] , [address], [place], [place], [address], tel:[phone] [facility] [place] No Information Smith Marino. [address], [place], [place], [address], . tel:[phone] Consulting Provider: Nara Daniel, [address], [place], [address]. tel:[phone] Family History Family Member Type Diagnosis Age [...]
[2024-05-30 09:56] LABS: EDCOVIDSCREEN Negative (Negative); EDINFLUASCREEN Positive (Negative); EDINFLUBSCREEN Negative (Negative)
== END 2024-05-30 10:04 | disposition home or self-care (01) ==
PROVIDERS: Emergency Provider Nurse Practitioner Family; PCP Emergency Medicine
DX: J10.1 Influenza due to other identified influenza virus with other respiratory manifestations (principal); Z20.822 Contact with and (suspected) exposure to COVID-19; F17.290 Nicotine dependence, other tobacco product, uncomplicated
CPT/HCPCS: 87426; 87804; 99212; G0463

== ENCOUNTER 2024-10-22 09:11 | Emergency (ER) | payer BC, SELFPAY ==
--- NOTE | ~2024-10-22 | XR_ITS ---
Exam: Abdomen 1V HISTORY: gen abdominal pain, hypoactive BS COMPARISON: Reference is made to CT examination of the abdomen and pelvis dated 06/06/2022 TECHNIQUE: Supine images of the abdomen FINDINGS: Significant fecal stasis within the ascending and proximal transverse colon. Air opacification of the mid to distal transverse colon. A paucity of bowel gas is otherwise detected. Air and stool within the rectum. There is no free air or deep sulci. No pathologic calcifications are seen. Lung bases are unremarkable. Bones and soft tissues are unremarkable. IMPRESSION: Significant fecal stasis, as detailed above. Reviewed, dictated and finalized at location A.
[2024-10-22 09:17] VITALS: BP 145/91; PULSE 91; RESP 16; TEMP 36.5; O2SAT 99
--- NOTE | 2024-10-22 09:27 | ED_ITS ---
HPI - Nausea/Vomiting/Diarrhea General Chief complaint: Nausea/Vomiting/Diarrhea Stated complaint: Nausea/Body Aches/Stomach Pain Time Seen by Provider: 10/22/24 09:27 Source: patient Mode of arrival: ambulatory Limitations: no limitations History of Present Illness HPI Narrative: 23 yo M presents with N/V, ABD bloating for 3 days. Last vomited 2 days ago. Continues to feel nauseated. Waking up during the night sweating. Has not had BM for 3 days. Started diet about 1 month ago cutting out soda, fast food. Has lost 15lbs. Does not eat any fruits or vegetables. All systems reviewed and negative except as noted above. Related Data Home Medications ?Medication ?Instructions ?Recorded ?Confirmed ?Last Taken ?Type naproxen 500 mg tablet mg 10/22/24 Unknown History prochlorperazine maleate 10 mg mg 10/22/24 Unknown History tablet Allergies Allergy/AdvReac Type Severity Reaction Status Date / Time No Known Allergies Allergy Verified 10/22/24 09:27 Review of Systems Review of Systems: CONSTITUTIONAL: Denies fever, chills, or sweats. EYES: Denies visual changes, redness, or discharge. ENT: Denies rhinorrhea, congestion, sore throat, or otalgia. CARDIOVASCULAR: Denies chest pain, palpitations, or edema. RESPIRATORY: Denies cough or dyspnea. GASTROINTESTINAL: reports abdominal pain, bloating,nausea, vomiting, constipation GENITOURINARY: Denies dysuria or hematuria. SKIN: Denies rash or itching. MUSCULOSKELETAL: Denies back pain, joint pain, or myalgia. NEUROLOGIC: Denies headache, numbness, or weakness. PSYCHIATRIC: Denies anxiety or depression. All other systems reviewed are negative, except as documented in HPI. [facility] Past Medical History Medical History (Updated 10/22/24 @ 10:41 by Karin Garcia NP) Anxiety Depression Surgical History Surgical History (Updated 12/07/23 @ 09:10 by Evelyn Byrd) History of excision of pilonidal cyst ~ end 2019 History of tonsillectomy and adenoidectomy Family History Family History Other Cancer Diabetes mellitus Hypertension Social History Social History (Updated 12/07/23 @ 08:53 by Constanza Wren [facility]) Smoking status: Current every day smoker Tobacco type: e-cigarettes/vaping Alcohol intake: current Alcohol use details: socially Do You Feel Safe in your Home?: Yes Lack of Transportation: No Lack of Food: Sometimes True Current Housing: I Have Housing Concerned About Future Housing: No Difficulty Paying Gas/Electric Bills: No Difficulty Paying for Meds: No Currently Unemployed: No Education: High School Diploma/GED Difficulty w/ Childcare or Family Care: No Living arrangements: with family Occupation/Education: occupation 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 There is no relevant family history pertinent to the presenting complaint. Exam Narrative: GENERAL: This is a well-nourished, well-developed patient, in no apparent distress. HEAD: normocephalic, atraumatic. EYES: PERRL. Sclera clear/white. Vision is grossly intact. EARS: External ears normal NOSE: External nose normal NECK: Neck supple, non-tender without lymphadenopathy, masses or thyromegaly. CARDIOVASCULAR: Regular rate and rhythm without murmurs, gallops, or rubs. RESPIRATORY: Clear to auscultation. Breath sounds equal bilaterally. No wheezes, rales, or rhonchi. GASTROINTESTINAL: Abdomen soft, non-tender, nondistended. Bowel sounds are hypoactive. SKIN: warm, Dry, intact with no suspicious lesions or rash, good texture and turgor. NEURO: awake, alert, and oriented to person, place and time. There were no obvious focal neurologic abnormalities. EXTREMITIES: No joint tenderness, effusion, or edema noted. Course Course Level of Care: Express Care Visit Vital Signs Vital signs: Vital Signs Temperature 36.5 C 10/22/24 09:17 Pulse Rate 91 10/22/24 09:17 Respiratory Rate 16 10/22/24 09:17 Blood Pressure 145/91 H 10/22/24 09:17 Pulse Oximetry 99 10/22/24 09:17 Oxygen Delivery Room Air 10/22/24 09:17 Temperature 36.5 C 10/22/24 09:17 Pulse Rate 91 10/22/24 09:17 Respiratory Rate 16 10/22/24 09:17 Blood Pressure 145/91 H 10/22/24 09:17 Pulse Oximetry 99 10/22/24 09:17 Oxygen Delivery Room Air 10/22/24 09:17 reviewed MDM - Nausea/Vomiting/Diarrhea MDM Narrative Medical decision making narrative: discussed x-ray results with pt. significant fecal stasis, no obstruction noted. recommend OTC miralax, dulcolax, increase fiber, water and activity. Will go to ER for any worsening of symptoms. Differential Diagnosis Differential diagnosis: Likely gastroenteritis, dehydration and other (constipation, bowel obstruction) Lab Data Labs: Lab Results 10/22/24 Range/Units 09:49 POC Influenza A Ag Negative (Negative) POC Influenza B Ag Negative (Negative) POC SARS CoV-2 Ag Negative (Negative) Imaging Data My impression: agree with radiologist Radiologist's impression: Exam: Abdomen 1V HISTORY: gen abdominal pain, hypoactive BS COMPARISON: Reference is made to CT examination of the abdomen and pelvis dated 06/06/2022 TECHNIQUE: Supine images of the abdomen FINDINGS: Significant fecal stasis within the ascending and proximal transverse colon. Air opacification of the mid to distal transverse colon. A paucity of bowel gas is otherwise detected. Air and stool within the rectum. There is no free air or deep sulci. No pathologic calcifications are seen. Lung bases are unremarkable. Bones and soft tissues are unremarkable. IMPRESSION: Significant fecal stasis, as detailed above. Discharge Plan Discharge Clinical Impression: Constipation Patient Disposition: Home Condition: Stable Instructions: Constipation (ED) Additional Instructions: Purchase over the counter Miralax and Dulcolax and take as directed on packaging. Drink at least 64 ounces of water a day. Add fiber into your diet, such as eating apples. Exercise for at least 30 minutes a day. If you are unable to have bowel movement or have severe abdominal pain go to the ER. Patient Language: Cambodian Prescriptions: No Action prochlorperazine maleate 10 mg tablet naproxen 500 mg tablet Follow-up/Referrals: Ed Root MD [Primary Care Provider] - Stand Alone Forms: Work/School Release IP Time of Disposition: 10:41
--- OUTSIDE RECORDS SUMMARY | 2024-10-22 09:27 | XMS_ITS | Clinical Summary ---
Author Organization [facility] Address [address] [place] [address] Care Team Providers Care Dog Day Care Attendant Name Role Phone Ed Root MD Primary Care Provider [phone] Source Comments [facility],non-owned Affiliates and Associated Physician Practices is amultiple site organization consisting of ambulatory clinics and hospital sitesin [place], [place], [place] and [place]. This disclosure is being madepursuant to the Care Everywhere program and may not contain all information available regarding this patient. Last updated 17.[facility] Allergies No known active allergies Medications * Be aware that medications may not be up to date on this document. Alwaysverify current medications with the patient. benzonatate (Tessalon Perles) 100 MG capsule Take 1 (one) capsule by mouth 3 times daily as needed for Cough 30 capsule 06/15/2024 Active Social History Tobacco Use Types Packs/Day Years Used Date Smoking Tobacco: Never Smokeless Tobacco: Never Tobacco Cessation:Counseling Given: Not Answered Alcohol Use Standard Drinks/Week Comments Yes 0 (1 standard drink = 0.6 oz pur e alcohol) rare Sex and Gender Information Value Date Recorded Sex Assigned at Not on file Legal Sex Male 1:10 PM CDT Gender Identity Not on file Sexual Orientation Not on file Last Filed Vital Signs Vital Sign Reading Time Taken Comments Blood Pressure 146/99 06/15/2024 9:14 AM CDT Pulse 81 06/15/2024 9:14 AM CDT Temperature 36.7 C (98.1 F) 06/15/2024 9:14 AM CDT Respiratory Rate 18 06/15/2024 9:14 AM CDT Oxygen Saturation 92% 06/15/2024 9:14 AM CDT Inhaled Oxygen Concentration - - Weight 127 kg (280 lb) 06/15/2024 9:14 AM CDT Height 177.8 cm (5' 10) 06/15/2024 9:14 AM CDT Body Mass Index 40.18 06/15/2024 9:14 AM CDT Plan of Treatment Health Maintenance Due Date Last Done Comments HIV SCREENING 11/16/2015 HPV VACCINE (1 - Male 3-dose series) 11/16/2015 MENINGOCOCCAL (Group B) VACC INE SHARED DECISION-MAKING (1 of 2 - Standard) 2016 HEPATITIS C SCREENING 11/11/2018 DTAP/TDAP/TD VACCINES (1 - Tdap) 11/16/2019 HEPATITIS B VACCINE (1 of 3 - 19+ 3-dose series) 11/16/2019 COVID-19 VACCINE (1 - 2023-2 5 season) 2023 DEPRESSION SCREENING 03/26/2024 INFLUENZA VACCINE (#1) 2024 ZOSTER VACCINE (1 of 2) 2050 HIB VACCINE Aged Out No longer eligi ble based on patient's age to complete this topic MENINGOCOCCAL GROUPS A/C/Y/W VACCINE Aged Out No longer eligible b ased on patient's age to complete this topic PNEUMOCOCCAL VACCINE Aged Out No long er eligible based on patient's age [place] [address] [employer] Care Teams Dog Day Care Attendant Relationship Specialty Start Date End Date Ed Root MD [address] [place] [address] PCP - General Family Medicine 06/15/24
--- OUTSIDE RECORDS SUMMARY | 2024-10-22 09:27 | XMS_ITS | Referral Summary ---
Author Organization [facility] Address [address] [place] [address] Care Team Providers Care Stem Threshing Machine Operator Name Role Phone Leon Russell MD Unavailable [phone] Ed Root MD Primary Care Provider [phone] Encounters Date Type Department Care Team Description 08/21/2024 Telephone [facility] Neuroscience Nurse Navigation [address] [place] [phone] Camilla Underwood, RN End Of Episode 08/12/2024 Telephone [facility] Neuroscience Nurse Navigation [address] [place] [phone] Camilla Underwood, RN Appointment/Schedules 08/04/2024 Telephone [facility] Neuroscience Nurse Navigation [address] [place] [phone] Camilla Underwood, RN Unsuccessful Phone Call 1 07/23/2024 Telephone [facility] Neuroscience Nurse Navigation [address] [place] [phone] Camilla Underwood, RN Clinic Visit Follow Up from Last 3 Months Allergies No known active allergies Medications pantoprazole [...] (06/09/2022): Added automatically from request for surgery [id number] Generalized abdominal pain 06/09/2022 Overview (06/09/2022): Added automatically from request for surgery [id number] Acute diarrhea 06/09/2022 Overview (06/09/2022): Added automatically from request for surgery [id number] Ganglion cyst 03/10/2022 Abscess 03/02/2020 Pilonidal cyst 02/18/2020 Overview (02/18/2020): Added automatically from request for surgery [id number] Adjustment disorder with disturbance of conduct 12/02/2019 [...] on file 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 Gender Identity Not on file Sexual Orientation [...] 2:45 PM CDT Height 180.3 cm (5' 11) 09/26/2023 2:45 PM CDT Body Mass Index 39.75 09/26/2023 2:45 PM CDT Plan of Treatment Not on file Insurance [place] [address] Advance Directives For more information, please contact: [phone] * Full Code (Latest Code Status on File) Date Activated Date Inactivated Comments 06/19/2022 1:26 PM 06/19/2022 8:43 PM * Full Code Date Activated Date Inactivated Comments 06/19/2022 1:26 PM 06/19/2022 1:26 PM * Full Code Date Activated Date Inactivated Comments 03/02/2020 5:14 AM 03/05/2020 7:37 PM * Full Code Date Activated Date Inactivated Comments 12/01/2019 5:17 PM 12/02/2019 7:04 PM Care Teams Stem Threshing Machine Operator Relationship Specialty Start Date End Date Ed Root MD [address] [place] [address] PCP - General 11/29/21 Leon Russell MD Surgeon General Surgery 03/05/20
--- OUTSIDE RECORDS SUMMARY | 2024-10-22 09:27 | XMS_ITS | Clinical Summary ---
Author Organization [facility] Address [address] [place] [address] Care Team Providers Care Textiles And Clothing Teacher Name Role Phone Leon Russell MD Unavailable [phone] Ed Root MD Primary Care Provider [phone] Allergies No known active allergies Medications pantoprazole [...] (06/09/2022): Added automatically from request for surgery [id number] Generalized abdominal pain 06/09/2022 Overview (06/09/2022): Added automatically from request for surgery [id number] Acute diarrhea 06/09/2022 Overview (06/09/2022): Added automatically from request for surgery [id number] Ganglion cyst 03/10/2022 Abscess 03/02/2020 Pilonidal cyst 02/18/2020 Overview (02/18/2020): Added automatically from request for surgery [id number] Adjustment disorder with disturbance of conduct 12/02/2019 [...] disorder. -Discharge with opioid use disorder [facility] Pain of hand 05/22/2016 Overview (06/29/2016): Hand pain Encounters Date Type Department Care Team Description 08/21/2024 Telephone [facility] Neuroscience Nurse Navigation [address] [place] [phone] Camilla Underwood RN End Of Episode 08/12/2024 Telephone [facility] Neuroscience Nurse Navigation [address] [place] [phone] Camilla Underwood RN Appointment/Schedules 08/04/2024 Telephone [facility] Neuroscience Nurse Navigation [address] [place] [phone] Camilla Underwood RN Unsuccessful Phone Call 1 07/23/2024 Telephone [facility] Neuroscience Nurse Navigation [address] [place] [address] Camilla Underwood RN Clinic Visit Follow Up from Last 3 Months Surgical History Surgery Date Site/Laterality Comments TONSILLECTOMY PILONIDAL CYSTECTOMY 02/24/2020 - 03/25/2020 COLONOSCOPY 06/19/2022 Medical History Medical History Date Comments Hx Other Medical 2006 Tonsillect radha; Comments: JJC 05/23/2016 - Hx Other Medical Fracture right thumb metacarpal.; Comments: [facility]C 06/13/2016 - ADHD (attention deficit hype ractivity [...] on file 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 Gender Identity Not on file Sexual Orientation [...] 02/14/2002, Additional history exists Influenza Vaccine (#1) 2024 Hepatitis B Screening Completed 05/23/2001 , 01/11/2001, 2000 Pneumococcal vaccine <65 Aged Out 002, 03/22/2001, 01/11/2001 No longer eligible based on patient's age to complete this topic Varicella Vaccines Completed 08/08/2011, 11/21/2001 HPV Vaccines Completed 03/27/2018, 10/25, 09/19/2017 Insurance [facility] [employer] Advance Directives For more information, please contact: [phone] * Full Code (Latest Code Status on File) Date Activated Date Inactivated Comments 06/19/2022 1:26 PM 06/19/2022 8:43 PM * Full Code Date Activated Date Inactivated Comments 06/19/2022 1:26 PM 06/19/2022 1:26 PM * Full Code Date Activated Date Inactivated Comments 03/02/2020 5:14 AM 03/05/2020 7:37 PM * Full Code Date Activated Date Inactivated Comments 12/01/2019 5:17 PM 12/02/2019 7:04 PM Care Teams Textiles And Clothing Teacher Relationship Specialty Start Date End Date Ed Root MD [address] [place] [address] [place] [address] PCP - General 11/29/21 Leon Russell MD Surgeon General Surgery 03/05/20
--- OUTSIDE RECORDS SUMMARY | 2024-10-22 09:27 | XMS_ITS | Clinical Summary ---
Author Organization [facility] Address [address] [place] [address] Care Team Providers Care Board Filler Name Role Phone Kenyon Pinedo MD Primary Care Provider [phone] Allergies No known active allergies Medications No [...] 2:39 AM CDT Height 180.3 cm (5' 11) 07/06/2021 2:39 AM CDT Body Mass Index [...] - 19+ 3-dose series) 11/16/2019 COVID-19 Vaccine (1 - 2023-25 season) 2023 Meningococcal Vaccine Completed 09/19/2017 HPV Vaccines Completed 03/27/2018, 10/25, 09/19/2017 Pneumococcal Vaccine: Pediatrics (0 to 5 Years) and At-Risk Patients (6 to 49 Years) Aged Out No longer eligible based on patient's age to complete this topic RSV Immunizations Under 20 Months Aged Out No longer eligible based on patient's age to complete this topic Insurance [facility] Care Teams Board Filler Relationship Specialty Start Date End Date Kenyon Pinedo MD [address] [place] [address] PCP - General FAMILY PRACTICE 12/24/20
--- OUTSIDE RECORDS SUMMARY | 2024-10-22 09:30 | XMS_ITS | Continuity of Care Document ---
Author Organization [facility] Address [address] [facility] [place] [address] Phone Care Team Providers Care Tire And Lube Technician Name Role Phone Ed Root MD Unavailable Unavailable Allergies, Adverse Reactions, Alerts Substance Reaction Status Criticality No Known Allergies Active No Inform ation Medications Medication Instructions Dosage Effective Dates (start - stop) Status Comments prochlorperazine maleate 10 mg tablet take 1 tablet by oral route every 6 hours as needed 10 MG - Active PRN for nausea, avoid driving or operate machines, max 4 tab/24 hours naproxen 500 mg tablet take 1 tablet by oral route 2 times every day with food as needed 500 MG - Active PRN for headache Procedures Procedure Date PREV VISIT, EST, AGE 18-39 OFFICE/OUTPATIENT VISIT, EST OFFICE/OUTPATIENT VISIT, EST OFFICE/OUTPATIENT VISIT, EST OFFICE/OUTPATIENT VISIT, EST OFFICE/OUTPATIENT VISIT, EST OFFICE/OUTPATIENT VISIT, EST OFFICE/OUTPATIENT VISIT, EST OFFICE/OUTPATIENT VISIT, EST PREV VISIT, NEW, AGE 18-39 OFFICE/OUTPATIENT VISIT, NEW Advance Directives Directive Yes / No Effective Date File Name No Information Encounters Encounter Description Practice Location Reason(s) For Visit Diagnoses Date Provider Providers Copied on Encounter [facility], [address] [place], [id number], [place] tel:[phone] [facility] No Information [address], [place], [place], [address] , [place]. tel:[phone] PREV VISIT, EST, AGE 18-39 [facility], [address], [place], [place], [address], [place] tel:[phone] [facility] physical (chief complaint) Encounter for general adult medical exam w abnormal findingsMixed hyperlipidemiaProte inuriaBenign neoplasm of pituitary glandAbnormal weight gainMigraine without aura, not intractable, without status migrainosus [address], [place], [place], [address] , [place]. tel:[phone] OFFICE/OUTPA TIENT VISIT, EST [facility], [address], [place], [place], [address], [place] tel:[phone] [facility] pituitary1 (chief complaint) Migraine without aura, not intractable, without status migrainosusBenign neoplasm of pituitary glandAbnormal weight gain [address], [place], [place], [address] , [place]. tel:[phone] OFFICE/OUTPA TIENT VISIT, EST [facility], [address], [place], [place], [address], [place] tel:[phone] [facility] leg (chief complaint) foot 1 (chief complaint) Athlete's footEdemaBenign neoplasm of pituitary glandMigraine without aura, not intractable, without status migrainosus [address], [place], [place], [address] , [place]. tel:[phone] OFFICE/OUTPA TIENT VISIT, EST [facility], [address], [place], [place], [address], [place] tel:[phone] [facility] leg weakness1 (chief complaint) Benign neoplasm of pituitary glandMuscle weaknessParesthesia of skin [address], [place], [place], [address] , [place]. tel:[phone] OFFICE/OUTPA TIENT VISIT, [facility], [address], [place], [place], [address], [place] tel:[phone] [facility] GERD1 (chief complaint) knee pain1 (chief complaint) GERD w/o esophagitisOccult blood in stoolPain in right knee Apr-2 [address], [place], [place], [address] , [place]. tel:[phone] OFFICE/OUTPA TIENT VISIT, [facility], [address], [place], [place], [address], [place] tel:[phone] [facility] blood in stool1 (chief complaint) Generalized abdominal painOccult blood in stool Mar- [address], [place], [place], [address] , [place]. tel:[phone] OFFICE/OUTPA TIENT VISIT, [facility], [address], [place], [place], [address], [place] tel:[phone] [facility] shoulder pain1 (chief complaint) ganglion cyst1 (chief complaint) HTN (chief complaint) headache1 (chief complaint) Essential (primary) hypertensionChronic migraine without aura, not intractable, without status migrainosusGanglion of right handPain in right shoulder Nov-0 [address], [place], [place], [address] , [place]. tel:[phone] OFFICE/OUTPA TIENT VISIT, [facility], [address], [place], [place], [address], [place] tel:[phone] [facility] migraine1 (chief complaint) HTN (chief complaint) shoulder pain1 (chief complaint) ganglion (chief complaint) Pain in right shoulderChronic migraine without aura, not intractable, without status migrainosusEssentia l (primary) hypertensionGanglio n of right hand Sep-2 9-202 [address], [place], [place], [address] , [place]. [phone] PREV VISIT, NEW, AGE 18-39 [facility], [address], [place], [place], [address], [place] [phone] [facility] physical (chief complaint) Encounter for general adult medical exam w abnormal findingsChronic migraine without aura, not intractable, without status migrainosusEssentia l (primary) hypertensionPain in right shoulder Oct-3 [address], [place], [place], [address] , [place]. [phone] Family History Family Member Type Diagnosis Age At Onset Father Problem unknown Mother Problem Migraines Sister Problem Alive and well Payers Payer name Insurance type Covered libertarian ID Authoriza tion(s) No Information Social History Type Description Quantity Date Captured Comments Sex Male Smoking Status No Information Chief Complaint And Reason For Visit No Information Plan Of Treatment Date Type Action Status Referral Referred To: Reymundo MIMS, Kirk [address] [place], [place], [id number] Ordered: Referrals: Reymundo MIMS, Kirk Collado. Evaluate and treat ordered Referral Ordered: Jose Maria Meredith -Allopathic & Osteopathic Physicians : Psychiatry & Neurology : Neurology (related to Migraine without aura, not intractable, without status migrainosus) ordered Referral Referred To: Jose Maria Meredith [address] [place] [address]
[address] [place], [place] [phone] Ordered: Referrals: Allopathic & Osteopathic Physicians : Psychiatry & Neurology : Neurology. Jose Maria Meredith. Evaluate and treat ordered Referral Ordered: MRI BRAIN W/O & W/DYE ordered Referral Ordered: KWADWO CALLAHAN -Allopathic & Osteopathic Physicians : Orthopaedic Surgery (related to Pain in right knee) ordered Referral Referred To: KWADWO CALLAHAN [address] [place], [place], [id number] Ordered: Referrals: Allopathic & Osteopathic Physicians : Orthopaedic Surgery. KWADWO CALLAHAN. Evaluate and treat ordered Referral Ordered: CT ABDOMEN&PELVIS W/CONTRAST ordered Referral Ordered: Physical Therapy (related to Pain in right shoulder) ordered Referral Referred To: Physical Therapy Ordered: Referrals: Physical Therapy. Evaluate and treat ordered Referral Ordered: MRI JOINT UPR EXTREM W/O DYE Right shoulder ordered Referral Referred To: Padma MIMS, Chin Yadav [address] [facility]
[address] [place], [place], [id number] Ordered: Referrals: Chin Rosue MD. Evaluate and treat ordered Referral Ordered: US EXAM, EXTREMITY ordered Referral Referred To: Ana MIMS, Celestino Mcginnis [address]
[place] [address] [place], [place], [id number] Ordered: Referrals: Ana MIMS, Celestino Mcginnis. Evaluate and treat ordered History Of Present Illness Encounter Date Complaint History Of Prese nt Illness physical Pt needs annual physical. pt is getting and he has been very busy and he has not followed up with neurology regarding migraine .Pt takes naproxen and compazine PRn for headache and doing ok Pt states that he rarely has headache now. Pt had MRI of brain done which showed pituitary adenoma. His prolactin is normal. He denies any nipple discharge. Pt has mildly high TG and proteinuria pt denies any urinary symptoms Pt is scheduled for gastric sleeve surgery and he needs surgical clearance. pituitary1 Pt has MRI evide nce of [...] has intermittent migraine headache. pt went to [facility] ER two weeks ago and he [...] made to ER. Pt was seen at [facility] ER and he had normal CTA [...] has migraine. Instructions Date Instruction Additional Infor oralia No Information Assessments Type Assessment Date No Information
--- OUTSIDE RECORDS SUMMARY | 2024-10-22 09:30 | XMS_ITS | Continuity of Care Document ---
Author Organization [facility] Address [address] [place] [phone] Phone Care Team Providers Care Police Pilot Name Role Phone Smith MIMS, Jamila Unavailable Unavailable Fredy GALAVIZ, Nara Unavailable Unavailable Advance Directives Directive Yes / No Effective Date File Name No Information Encounters Encounter Description Practice Location Reason(s) For Visit Diagnoses Date Provider Providers Copied on Encounter [facility] , [address], [place], [place], [address], tel:[phone] [facility] No Information Smith Marino. [address], [place], [place], [address], . tel:[phone] Consulting Provider: Nara Daniel, [address], [place], [address]. tel:[phone] Family History Family Member Type Diagnosis Age At Onset No Information Payers Payer name Insurance type Covered green [...]
[2024-10-22 09:50] LABS: EDINFLUASCREEN Negative (Negative); EDINFLUBSCREEN Negative (Negative)
[2024-10-22 09:51] LABS: EDCOVIDSCREEN Negative (Negative)
[2024-10-22 10:49] VITALS: BP 141/97; PULSE 89
== END 2024-10-22 10:49 | disposition home or self-care (01) ==
PROVIDERS: Emergency Provider Nurse Practitioner Family; PCP Emergency Medicine
DX: K59.00 Constipation, unspecified (principal); Z20.822 Contact with and (suspected) exposure to COVID-19; F17.290 Nicotine dependence, other tobacco product, uncomplicated
CPT/HCPCS: 74018; 87426; 87804; 99213; G0463

== ENCOUNTER 2024-10-23 19:23 | Emergency (ER) | payer BC, SELFPAY ==
--- OUTSIDE RECORDS SUMMARY | 2024-10-23 19:26 | XMS_ITS | Clinical Summary ---
Author Organization [facility] Address [address] [place] [address] Care Team Providers Care Section Gang Name Role Phone Ed Root MD Primary Care Provider [phone] Source Comments [facility],non-owned Affiliates and Associated Physician Practices is amultiple site organization consisting of ambulatory clinics and hospital sitesin [place], [place], [place] and [place]. This disclosure is being madepursuant to the Care Everywhere program and may not contain all information available regarding this patient. Last updated 17.[facility] Allergies No known active allergies Medications * [...] patient's age to complete this topic Insurance [employer] Care Teams Section Gang Relationship Specialty Start Date End Date Ed Root MD [address] [place] [address] PCP - General Family Medicine 06/15/24
--- OUTSIDE RECORDS SUMMARY | 2024-10-23 19:26 | XMS_ITS | Clinical Summary ---
Author Organization [facility] Address [address] [place] [address] Care Team Providers Care Accounting Manager Assistant Controller Name Role Phone Kenyon Pinedo MD Primary Care Provider [phone] Allergies No known active allergies Medications No [...] patient's age to complete this topic Insurance [facility] Care Teams Accounting Manager Assistant Controller Relationship Specialty Start Date End Date Kenyon Pinedo MD [address] [place] [address] PCP - General FAMILY PRACTICE 12/24/20
--- OUTSIDE RECORDS SUMMARY | 2024-10-23 19:26 | XMS_ITS | Referral Summary ---
Author Organization [facility] Medical Office Building B Address [address] [place] [address] Care Team Providers Care Resourcing Consultant Name Role Phone Leon Russell MD Unavailable [phone] Ed Root MD Primary Care Provider [phone] Encounters Date Type Department Care Team Description 08/21/2024 Telephone [facility] Nurse Navigation [address] [place] [phone] Camilla Underwood, ANASTACIA End Of Episode 08/12/2024 Telephone [facility] Nurse Navigation [address] [place] [phone] Camilla Underwood, RN Appointment/Schedules 08/04/2024 Telephone [facility] Nurse Navigation [address] [place] [phone] Camilla Underwood, RN Unsuccessful Phone Call 1 07/23/2024 Telephone [facility] Nurse Navigation [address] [place] [phone] Camilla Underwood, RN Clinic Visit Follow Up [...] (06/09/2022): Added automatically from request for surgery [id number] Generalized abdominal pain 06/09/2022 Overview (06/09/2022): Added automatically from request for surgery [id number] Acute diarrhea 06/09/2022 Overview (06/09/2022): Added automatically from request for surgery [id number] Ganglion cyst 03/10/2022 Abscess 03/02/2020 Pilonidal cyst 02/18/2020 Overview (02/18/2020): Added automatically from request for surgery [id number] Adjustment disorder with disturbance of conduct 12/02/2019 [...] on file 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 Gender Identity Not on file Sexual Orientation [...] Plan of Treatment Not on file Insurance [facility] H[facility]/PPO Address: [address] [address] [place] [address] [place] [address] Advance Directives For more information, please contact: [phone] * Full Code (Latest Code Status on File) Date Activated Date Inactivated Comments 06/19/2022 1:26 PM 06/19/2022 8:43 PM * Full Code Date Activated Date Inactivated Comments 06/19/2022 1:26 PM 06/19/2022 1:26 PM * Full Code Date Activated Date Inactivated Comments 03/02/2020 5:14 AM 03/05/2020 7:37 PM * Full Code Date Activated Date Inactivated Comments 12/01/2019 5:17 PM 12/02/2019 7:04 PM Care Teams Resourcing Consultant Relationship Specialty Start Date End Date Ed Root MD [address] [place] [address] PCP - General 11/29/21 Leon Russell MD Surgeon General Surgery 03/05/20
--- OUTSIDE RECORDS SUMMARY | 2024-10-23 19:26 | XMS_ITS | Continuity of Care Document ---
Author Organization [facility] Address [address] [place] [phone] Phone Care Team Providers Care Spring Coiler Hand Name Role Phone Smith MIMS, Jamila Unavailable Unavailable Fredy RN, Nara Unavailable Unavailable Advance Directives Directive Yes / No Effective Date File Name No Information Encounters Encounter Description Practice Location Reason(s) For Visit Diagnoses Date Provider Providers Copied on Encounter [facility] , [address], [place], [place], [address], tel:[phone] [employer] [facility] [place] No Information Smith Marino. [address], [place], [place], [address], . tel:[phone] Consulting Provider: Nara Daniel, [address], [place], [address]. tel:[phone] Family History Family Member Type Diagnosis Age At Onset No Information Payers Payer name Insurance type Covered democrat ID Authoriza tion(s) No Information Social History [...]
--- OUTSIDE RECORDS SUMMARY | 2024-10-23 19:26 | XMS_ITS | Clinical Summary ---
Author Organization [facility] Medical Office Building B Address [address] [place] [address] Care Team Providers Care Corporate Webmaster Name Role Phone Leon Russell MD Unavailable [phone] Ed Root MD Primary Care Provider [phone] Allergies No known active allergies Medications pantoprazole [...] (06/09/2022): Added automatically from request for surgery [id number] Generalized abdominal pain 06/09/2022 Overview (06/09/2022): Added automatically from request for surgery [id number] Acute diarrhea 06/09/2022 Overview (06/09/2022): Added automatically from request for surgery [id number] Ganglion cyst 03/10/2022 Abscess 03/02/2020 Pilonidal cyst 02/18/2020 Overview (02/18/2020): Added automatically from request for surgery [id number] Adjustment disorder with disturbance of conduct 12/02/2019 [...] disorder. -Discharge with opioid use disorder [facility] Pain of hand 05/22/2016 Overview (06/29/2016): Hand pain Encounters Date Type Department Care Team Description 08/21/2024 Telephone [facility] Neuroscience Nurse Navigation [address] [place] [phone] Camilla Underwood RN End Of Episode 08/12/2024 Telephone [facility]science Nurse Navigation [address] [place] [phone] Camilla Underwood RN Appointment/Schedules 08/04/2024 Telephone [facility]science Nurse Navigation [address] [place] [phone] Camilla Underwood RN Unsuccessful Phone Call 1 07/23/2024 Telephone [facility]science Nurse Navigation [address] [place] [address] Camilla Underwood RN Clinic Visit Follow Up [...] on file 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 Gender Identity Not on file Sexual Orientation [...] HPV Vaccines Completed 03/27/2018, 10/25, 09/19/2017 Insurance [facility] CHOICE PLUS CIGNA CIGNA Advance Directives For more information, please contact: [phone] * Full Code (Latest Code Status on File) Date Activated Date Inactivated Comments 06/19/2022 1:26 PM 06/19/2022 8:43 PM * Full Code Date Activated Date Inactivated Comments 06/19/2022 1:26 PM 06/19/2022 1:26 PM * Full Code Date Activated Date Inactivated Comments 03/02/2020 5:14 AM 03/05/2020 7:37 PM * Full Code Date Activated Date Inactivated Comments 12/01/2019 5:17 PM 12/02/2019 7:04 PM Care Teams Corporate Webmaster Relationship Specialty Start Date End Date Ed Root MD [address] [place] [address] [place] [address] PCP - General 11/29/21 Leon Russell MD Surgeon General Surgery 03/05/20
--- OUTSIDE RECORDS SUMMARY | 2024-10-23 19:26 | XMS_ITS | Continuity of Care Document ---
Author Organization [facility] Address [address] [employer] [facility] [place] [address] Phone Care Team Providers Care Marketing Education Teacher Name Role Phone Ed Root MD Unavailable [...] Diagnoses Date Provider Providers Copied on Encounter [facility], [address] [facility] [place], [address], [place] tel:[phone] [facility] No Information [address], [place], [place], [address] , [place]. tel:[phone] PREV VISIT, EST, AGE 18-39 [facility], [address], [place], [place], [address], [place] tel:[phone] [facility] physical (chief complaint) Encounter for general adult medical exam w abnormal findingsMixed hyperlipidemiaProte inuriaBenign neoplasm of pituitary glandAbnormal weight gainMigraine without aura, not intractable, without status migrainosus [address], [place], [place], [address] , [place]. tel:[phone] OFFICE/OUTPA TIENT VISIT, EST [facility], [address], [place], [place], [address], [place] tel:[phone] [facility] pituitary1 (chief complaint) Migraine without aura, not intractable, without status migrainosusBenign neoplasm of pituitary glandAbnormal weight gain [address], [place], [place], [address] , [place]. tel:[phone] OFFICE/OUTPA TIENT VISIT, EST [facility], [address], [place], [place], [address], [place] tel:[phone] [facility] leg (chief complaint) foot 1 (chief complaint) Athlete's footEdemaBenign neoplasm of pituitary glandMigraine without aura, not intractable, without status migrainosus [address], [place], [place], [address] , [place]. tel:[phone] OFFICE/OUTPA TIENT VISIT, EST [facility], [address], [place], [place], [address], [place] tel:[phone] [facility] leg weakness1 (chief complaint) Benign neoplasm of pituitary glandMuscle weaknessParesthesia of skin [address], [place], [place], [address] , [place]. tel:[phone] OFFICE/OUTPA TIENT VISIT, [facility], [address], [place], [place], [address], [place] tel:[phone] [facility] GERD1 (chief complaint) knee pain1 (chief complaint) GERD w/o esophagitisOccult blood in stoolPain in right knee Apr-2 [address], [place], [place], [address] , [place]. tel:[phone] OFFICE/OUTPA TIENT VISIT, [facility], [address], [place], [place], [address], [place] tel:[phone] [facility] blood in stool1 (chief complaint) Generalized abdominal painOccult blood in stool Mar- [address], [place], [place], [address] , [place]. tel:[phone] OFFICE/OUTPA TIENT VISIT, [facility], [address], [place], [place], [address], [place] tel:[phone] [facility] shoulder pain1 (chief complaint) ganglion cyst1 (chief complaint) HTN (chief complaint) headache1 (chief complaint) Essential (primary) hypertensionChronic migraine without aura, not intractable, without status migrainosusGanglion of right handPain in right shoulder Nov-0 [address], [address], [place], [place], [address] , [place]. tel:[phone] OFFICE/OUTPA TIENT VISIT, [facility], [address], [place], [place], [address], [place] tel:[phone] [facility] migraine1 (chief complaint) HTN (chief complaint) shoulder pain1 (chief complaint) ganglion (chief complaint) Pain in right shoulderChronic migraine without aura, not intractable, without status migrainosusEssentia l (primary) hypertensionGanglio n of right hand Sep-2 9-202 [address], [place], [place], [address] , [place]. [phone] PREV VISIT, NEW, AGE 18-39 [facility], [address], [place], [place], [address], [place] [phone] [facility] Medicine physical (chief complaint) Encounter for general adult medical exam w abnormal findingsChronic migraine without aura, not intractable, without status migrainosusEssentia l (primary) hypertensionPain in right shoulder Oct-3 2 [address], [place], [place], [address] , [place]. [phone] Family History Family Member Type Diagnosis Age [...] To: Reymundo MIMS, Kirk [address] [place], [place], [id number] Ordered: Referrals: Reymundo MIMS, Kirk Collado. Evaluate and treat ordered Referral Ordered: Jose Maria Meredith -Allopathic & Osteopathic Physicians : Psychiatry & Neurology : Neurology (related to Migraine without aura, not intractable, without status migrainosus) ordered Referral Referred To: Jose Maria Meredith [address] [place] [address]
[address] [place], [place] [id number] Ordered: Referrals: Allopathic & Osteopathic Physicians : Psychiatry & Neurology : Neurology. Jose Maria Meredith. Evaluate and treat ordered Referral Ordered: MRI BRAIN W/O & W/DYE ordered Referral Ordered: KWADWO CALLAHAN -[facility]opathic & Osteopathic Physicians : Orthopaedic Surgery (related to Pain in right knee) ordered Referral Referred To: KWADWO CALLAHAN [address] [place], [place], [id number] Ordered: Referrals: Allopathic & Osteopathic Physicians : [...] Referred To: Padma MIMS, Chin Yadav [address] [facility]
[address] [place], [place], [id number] Ordered: Referrals: Chin Rouse MD. Evaluate and treat ordered Referral Ordered: US EXAM, EXTREMITY ordered Referral Referred To: Ana MIMS, Celestino Mcginnis [address]
[place] [address] [employer], [place], [id number] Ordered: Referrals: Ana MIMS, Celestino Mcginnis. Evaluate [...] with headache. Pt denies any worsening headache. foot 1 Pt notices plant ar right foot sore which is painful but not itching Pt does wear steel toe boot at work all day. Pt also notices bilateral LE edema, worse on left side Pt denies any paresthesia or claudication Pt denies any drainage of the sores. pt notices some pain around the sores. pt denies any cold extremity leg Pt no longer has right leg and arm numbness and tingling and he never did MRI of brain or lab work. Pt does have pituitary lesions Pt has intermittent migraine headache. pt went to [facility] ER two weeks ago and he had another negative head CT and was sent home and on some migraine medication and he does not remember the name. He denies any recurrent headache leg weakness1 pt c/o acute ons et [...] made to ER. Pt was seen at [facility] ER and he had normal [...] any recurrent episodes since the initial episode. knee pain1 Pt c/o acute rig ht [...] as bad as since 2 days ago. GERD1 Pt has intermitt ent GERD .Pt is on protonix daily from GI. Pt had EGD and colonoscopy done last month and EGD was ok and colonoscopy showed hemorrhoid and benign polyp and he was told to repeat colonoscopy when he was 45. Pt denies any abd pain or diarrhea or dark stool. CT ok as well. blood in stool1 pt c/o dark bloo [...] ready to return to work on sunday. 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 Pt c/o pain, right hand stiffness and inability to open and close right hand completely due to above. Pt denies any redness or warmth shoulder pain1 Pt c/o persisten t right shoulder pain, worse with movement. Pt had negative shoulder x ray. Pt had shoulder ultrasound done which was benign. Pt has not heard from ortho yet HTN His bp is stable today. Pt denies any chest pain migraine1 Pt has chronic m igraine headache. Pt never picked up topamax. Pt states that his migraine headache improved on his own. Pt only has been having headache maybe once per week .Pt denies any head injury or waking up at night with headache physical Pt needs annual physical Pt injured [...]
--- OUTSIDE RECORDS SUMMARY | 2024-10-23 19:27 | XMS_ITS | Continuity of Care Document ---
Author Organization [facility] Address [address] [place] [address] Phone Care Team Providers Care Slipper Maker Name Role Phone Smith MIMS, Jamila Unavailable Unavailable rFedy RN, Nara Unavailable Unavailable Advance Directives Directive Yes / No Effective Date File Name No Information Encounters Encounter Description Practice Location Reason(s) For Visit Diagnoses Date Provider Providers Copied on Encounter [facility] , [address], [place], [place], [address], tel:[phone] [employer] [facility] [place] No Information Smith Marino. [address], [place], [place], [address], . tel:[phone] Consulting Provider: Nara Daniel, [address], [place], [address]. tel:[phone] Family History Family Member Type Diagnosis Age [...]
--- OUTSIDE RECORDS SUMMARY | 2024-10-23 19:27 | XMS_ITS | Continuity of Care Document ---
Author Organization [facility] Address [address] [facility] [place] [address] Phone Care Team Providers Care Instrumentation And Controls Technician Name Role Phone Ed Root MD [...] Diagnoses Date Provider Providers Copied on Encounter [facility], [address] [facility] [place], [place], [address], [place] tel:[phone] [facility] No Information [address], [place], [place], [address] , [place]. tel:[phone] PREV VISIT, EST, AGE 18-39 [facility], [address], [place], [place], [address], [place] tel:[phone] [facility] physical (chief complaint) Encounter for general adult medical exam w abnormal findingsMixed hyperlipidemiaProte inuriaBenign neoplasm of pituitary glandAbnormal weight gainMigraine without aura, not intractable, without status migrainosus [address], [place], [place], [address] , [place]. tel:[phone] OFFICE/OUTPA TIENT VISIT, EST [facility], [address], [place], [place], [address], [place] tel:[phone] [facility] pituitary1 (chief complaint) Migraine without aura, not intractable, without status migrainosusBenign neoplasm of pituitary glandAbnormal weight gain [address], [place], [place], [address] , [place]. tel:[phone] OFFICE/OUTPA TIENT VISIT, EST [facility], [address], [place], [place], [address], [place] tel:[phone] [facility] leg (chief complaint) foot 1 (chief complaint) Athlete's footEdemaBenign neoplasm of pituitary glandMigraine without aura, not intractable, without status migrainosus [address], [place], [place], [address] , [place]. tel:[phone] OFFICE/OUTPA TIENT VISIT, EST [facility], [address], [place], [place], [address], [place] tel:[phone] [facility] leg weakness1 (chief complaint) Benign neoplasm of pituitary glandMuscle weaknessParesthesia of skin [address], [place], [place], [address] , [place]. tel:[phone] OFFICE/OUTPA TIENT VISIT, [facility], [address], [place], [place], [address], [place] tel:[phone] [facility] GERD1 (chief complaint) knee pain1 (chief complaint) GERD w/o esophagitisOccult blood in stoolPain in right knee Apr-2 [address], [place], [place], [address] , [place]. tel:[phone] OFFICE/OUTPA TIENT VISIT, [facility], [address], [place], [place], [address], [place] tel:[phone] [facility] blood in stool1 (chief complaint) Generalized abdominal painOccult blood in stool Mar- [address], [place], [place], [address] , [place]. tel:[phone] OFFICE/OUTPA TIENT VISIT, [facility], [address], [place], [place], [address], [place] tel:[phone] [facility] shoulder pain1 (chief complaint) ganglion cyst1 (chief complaint) HTN (chief complaint) headache1 (chief complaint) Essential (primary) hypertensionChronic migraine without aura, not intractable, without status migrainosusGanglion of right handPain in right shoulder Nov-0 [address], [place], [place], [address] , [place]. tel:[phone] OFFICE/OUTPA TIENT VISIT, [facility], [address], [place], [place], [address], [place] tel:[phone] [facility] migraine1 (chief complaint) HTN (chief complaint) shoulder pain1 (chief complaint) ganglion (chief complaint) Pain in right shoulderChronic migraine without aura, not intractable, without status migrainosusEssentia l (primary) hypertensionGanglio n of right hand Sep-2 9-202 [address], [place], [place], [address] , [place]. [phone] PREV VISIT, NEW, AGE 18-39 [facility], [address], [place], [place], [address], [place] [phone] [facility] Medicine physical (chief complaint) Encounter for general adult medical exam w abnormal findingsChronic migraine without aura, not intractable, without status migrainosusEssentia l (primary) hypertensionPain in right shoulder Oct-3 2 [address], [place], [place], [address] , [place]. [phone] Family History Family Member Type Diagnosis Age [...] To: Reymundo MIMS, Kirk [address] [place], [place], [id number] Ordered: Referrals: Reymundo MIMS, Kirk Collado. Evaluate and treat ordered Referral Ordered: Jose Maria Meredith -Allopathic & Osteopathic Physicians : Psychiatry & Neurology : Neurology (related to Migraine without aura, not intractable, without status migrainosus) ordered Referral Referred To: Jose Maria Meredith [address] [place] [address]
[address] [place], [place] [id number] Ordered: Referrals: Allopathic & Osteopathic Physicians : Psychiatry & Neurology : Neurology. Jose Maria Meredith. Evaluate and treat ordered Referral Ordered: MRI BRAIN W/O & W/DYE ordered Referral Ordered: KWADWO CALLAHAN -Allopathic & Osteopathic Physicians : Orthopaedic Surgery (related to Pain in right knee) ordered Referral Referred To: KWADWO CALLAHAN [address] [place], [place], [id number] Ordered: Referrals: Allopathic & Osteopathic Physicians : [...] Referred To: Padma MIMS, Chin Yadav [address] [facility]
[address] [place], [place], [id number] Ordered: Referrals: Chin Rouse MD. Evaluate and treat ordered Referral Ordered: US EXAM, EXTREMITY ordered Referral Referred To: Ana IMMS, Celestino Mcginnis [address]
[place] [address] [place], [place], [id number] Ordered: Referrals: Ana MIMS, Celestino Mcginnis. Evaluate [...] has intermittent migraine headache. pt went to [facility] ER two weeks ago and [...] made to ER. Pt was seen at [facility] ER and he had normal [...]
[2024-10-23 19:30] VITALS: BP 138/92; PULSE 92; RESP 20; TEMP 36.4; O2SAT 100
--- NOTE | 2024-10-23 19:45 | ED.GENADULT ---
HPI - General Adult General Chief complaint: Unspecified Stated complaint: Blood Pressure Check Time Seen by Provider: 10/23/24 19:36 Source: patient and RN notes reviewed Mode of arrival: ambulatory Limitations: no limitations History of Present Illness HPI narrative: Patient presents today requesting a blood pressure check. He was seen here at [facility] yesterday for abdominal discomfort and constipation. At that time his blood pressure reading was 145/91. States he has anxiety and was worried that it was too high for him to wait for a PCP follow up for a recheck and wanted to come in today for a check. He denies any symptoms today to include chest pain, shortness of breath, headache, vision changes. Related Data Home Medications ?Medication ?Instructions ?Recorded ?Confirmed ?Last Taken ?Type naproxen 500 mg tablet mg 10/22/24 Unknown History prochlorperazine maleate 10 mg mg 10/22/24 Unknown History tablet Allergies Allergy/AdvReac Type Severity Reaction Status Date / Time No Known Allergies Allergy Verified 10/22/24 09:27 [facility] Past Medical History Medical History Anxiety Depression Surgical History Surgical History History of excision of pilonidal cyst ~ end 2019 History of tonsillectomy and adenoidectomy Family History Family History Other Cancer Diabetes mellitus Hypertension Social History Social History Smoking status: Current every day smoker Tobacco type: e-cigarettes/vaping Alcohol intake: current Alcohol use details: socially Do You Feel Safe in your Home?: Yes Lack of Transportation: No Lack of Food: Sometimes True Current Housing: I Have Housing Concerned About Future Housing: No Difficulty Paying Gas/Electric Bills: No Difficulty Paying for Meds: No Currently Unemployed: No Education: High School Diploma/GED Difficulty w/ Childcare or Family Care: No Living arrangements: with family Occupation/Education: occupation 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 Please see nursing chart for further information. There is no relevant family history pertinent to the presenting complaint Exam Narrative: GENERAL: Well-appearing, well-nourished, and in no acute distress. HEAD: Normocephalic, atraumatic. EYES: EOMI. No redness or drainage. Conjunctivae normal. ENT: Mucous membranes pink and moist. NECK: Normal AROM. CHEST: No respiratory distress. Clear to auscultation. HEART: Regular rate and rhythm. No murmur appreciated. EXTREMITIES: Normal range of motion. No edema. SKIN: Warm, dry, no rash. Capillary refill normal. Normal skin turgor. NEURO: No focal deficits. Alert and oriented x3. Gait steady. PSYCH: Anxious Course Course Level of Care: Express Care Visit Vital Signs Vital signs: Vital Signs Temperature 97.6 F 10/23/24 19:30 Pulse Rate 92 10/23/24 19:30 Respiratory Rate 20 10/23/24 19:30 Blood Pressure 138/92 H 10/23/24 19:30 Pulse Oximetry 100 10/23/24 19:30 Oxygen Delivery Room Air 10/23/24 19:30 Temperature 97.6 F 10/23/24 19:30 Pulse Rate 92 10/23/24 19:30 Respiratory Rate 20 10/23/24 19:30 Blood Pressure 138/92 H 10/23/24 19:30 Pulse Oximetry 100 10/23/24 19:30 Oxygen Delivery Room Air 10/23/24 19:30 Reviewed Medical Decision Making MDM Narrative Medical decision making narrative: 23-year-old male patient presents for recheck his blood pressure. He was seen yesterday for unrelated symptoms and had an elevated blood pressure reading. He did not want a wait for follow-up visit with his PCP to have his blood pressure rechecked. It was 138/92 today. He was given reassurance that his blood pressure is not at the level of an emergency and that it is safe at this time for him to wait to follow-up with his PCP. Anticipatory guidance given. Differential Diagnosis Differential Diagnosis: Elevated blood pressure, anxiety Vital Signs Vital Signs: Vital Signs Temperature 97.6 F 10/23/24 19:30 Pulse Rate 92 10/23/24 19:30 Respiratory Rate 20 10/23/24 19:30 Blood Pressure 138/92 H 07/31/25 19:30 Pulse Oximetry 100 10/23/24 19:30 Oxygen Delivery Room Air 10/23/24 19:30 Temperature 97.6 F 10/23/24 19:30 Pulse Rate 92 10/23/24 19:30 Respiratory Rate 20 10/23/24 19:30 Blood Pressure 138/92 H 10/23/24 19:30 Pulse Oximetry 100 10/23/24 19:30 Oxygen Delivery Room Air 10/23/24 19:30 Critical Care Time Critical Care Time Critical Care Time: No Discharge Plan Discharge Clinical Impression: Blood pressure check Patient Disposition: Home Condition: Stable Additional Instructions: Your blood pressure today is 138/92. Please follow-up with your PCP with any additional concerns. Patient Language: Andorran Prescriptions: No Action prochlorperazine maleate 10 mg tablet naproxen 500 mg tablet Follow-up/Referrals: Ed Root MD [Primary Care Provider] - Time of Disposition: 19:45
== END 2024-10-23 19:53 | disposition home or self-care (01) ==
PROVIDERS: Emergency Provider Nurse Practitioner; PCP Emergency Medicine
DX: R03.0 Elevated blood-pressure reading, without diagnosis of hypertension (principal); F17.210 Nicotine dependence, cigarettes, uncomplicated; Z79.1 Long term (current) use of non-steroidal anti-inflammatories (NSAID)
CPT/HCPCS: 99211; G0463

== ENCOUNTER 2025-03-22 08:38 | Emergency (ER) | payer BC, MEDICAID, SELFPAY ==
--- OUTSIDE RECORDS SUMMARY | 2019-07-28 05:09 | XMS_ITS | Continuity of Care Document ---
Author Organization [facility] Address [address] [place] [id number] Phone Care Team Providers Care Energy Trader Name Role Phone Smith MIMS, Jamila Unavailable Unavailable Fredy RN, Nara Unavailable Unavailable Advance Directives Directive Yes / No Effective Date File Name No Information Encounters Encounter Description Practice Location Reason(s) For Visit Diagnoses Date Provider Providers Copied on Encounter [facility] , [address], [place], [place], [id number], tel:[phone] [employer] [facility] No Information Smith Marino. [address], [place], [place], [id number], . tel:[phone] Consulting Provider: Nara Daniel, [address], [place], [address]. tel:[phone] Family History Family Member Type Diagnosis Age At Onset No Information Payers Payer name Insurance type Covered libertarian ID Authoriza tion(s) No Information Social History Type Description Quantity Date Captured Comments Sex Male Smoking Status No Information Chief Complaint And Reason For Visit No Information Reason For Referral Reason For Referral No Information History Of Present Illness Encounter Date Complaint History Of Prese nt Illness No Information Functional Status Date Functional Assessmen t No Information Instructions Date Instruction Additional Infor mation No Information Assessments Type Assessment Date No Information Patient Care Teams Name Effective Dates (start - stop) Status Members No Information
--- OUTSIDE RECORDS SUMMARY | 2025-03-22 08:44 | XMS_ITS | Clinical Summary ---
Author Organization [facility] Address [address] [place] [id number] Care Team Providers Care Asphalt Screed Operator Name Role Phone Kenyon Pinedo MD Primary Care Provider Allergies No known active allergies Medications No [...] 11/16/2011 10/27/2005, 02/14/2002, 05/23/2001, Additional history exists Hepatitis C 2018 Hepatitis B Vaccines (1 of 3 - 19+ 3-dose series) 11/16/2019 COVID-19 Vaccine (2024- season) 2024 Influenza Adult (#1) 2024 Meningococcal Vaccine Completed 09/19/2017 HPV Vaccines Completed 03/27/2018, 10/25, 09/19/2017 Hepatitis A Vaccines Aged Out No long er eligible based on patient's age to complete this topic Meningococcal B Vaccine Aged Out No l onger eligible based on patient's age to complete this topic Pneumococcal Vaccine: Pediatrics (0 to 5 Years) and At-Risk Patients (6 to 49 Years) Aged Out No longer eligible based on patient's age to complete this topic RSV Immunizations Under 20 Months Aged Out No longer eligible based on patient's age to complete this topic Insurance [employer] Care Teams Asphalt Screed Operator Relationship Specialty Start Date End Date Kenyon Pinedo MD [address] [place] [id number] PCP - General FAMILY PRACTICE 12/24/20
--- OUTSIDE RECORDS SUMMARY | 2025-03-22 08:44 | XMS_ITS | Clinical Summary ---
Author Organization [facility] Address [address] [place] [address] Care Team Providers Care Oceanographer Physical Name Role Phone Leon Russell MD Unavailable [phone] Ed Root MD Primary Care Provider Allergies No known active allergies Medications pantoprazole DR (PROTONIX) 40 mg EC tablet Take 1 tablet (40 mg total) by mouth daily 90 tablet 3 07/01/19 23 Active Additional Information Patient not taking.Reported on 11/09/2024 methylcellulose , laxative, (CITRUCEL) 500 mg tablet Take 2 tablets (1,000 mg total) by mouth daily 60 tablet 11 07/01/19 23 Active Additional Information Patient not taking.Reported on 11/09/2024 aspirin 81 mg enteric coated tablet Take 1 tablet (81 mg total) by mouth daily 30 tablet 02/20/20 23 Active Additional Information Patient not taking.Reported on 11/09/2024 ketoconazole (NIZORAL) 2 % cream Apply topically daily 15 g 04/25/19 24 Active Additional Information Patient not taking.Reported on 11/09/2024 bacitracin 500 unit/gram ointment Apply topically 2 (two) times a day 120 g 04/25/19 24 Active Additional Information Patient not taking.Reported on 11/09/2024 naproxen (NAPROSYN) 500 mg tabletIndicatio ns:Migraine without [...] MD 30 tablet/caps ule 09/26/19 24 Active Additional Information Patient not taking.Reported on 11/09/2024 mupirocin (BACTROBAN) 2 % ointmentIndicat ions:Skin cyst Apply topically 3 (three) times a day 22 g 11/10/19 25 Active amLODIPine (NORVASC) 5 mg tablet Take 1 tablet (5 mg total) by mouth daily 30 tablet 11 12/18/19 25 026 Active metoclopramide (REGLAN) 10 mg tablet Take 1 tablet (10 mg total) by mouth every 6 (six) hours 30 tablet 12/18/19 25 Active Active Problems Problem Noted Date Diagnosed Date Migraine without aura and wi thout status migrainosus, not intractable 09/26/2023 Rectal inflammation 06/30/2022 Irritable bowel syndrome wit h both constipation and diarrhea 06/30/2022 Hyperplastic polyp of sigmoid colon 06/30/2022 Gastroesophageal reflux disease 06/09/2022 Vapes nicotine containing substance 06/09/2022 BRBPR (bright red blood per rectum) 06/09/2022 Overview (06/09/2022): Added automatically from request for surgery [id number] Generalized abdominal pain 06/09/2022 Overview (06/09/2022): Added automatically from request for surgery [id number] Acute diarrhea 06/09/2022 Overview (06/09/2022): Added automatically from request for surgery [id number] Ganglion cyst 03/10/2022 Abscess 03/02/2020 Pilonidal cyst 02/18/2020 Overview (02/18/2020): Added automatically from request for surgery [id number] Adjustment disorder with disturbance of conduct 12/02/2019 [...] Types Packs/Day Years Used Date Smoking Tobacco: Every Day Vaping Passive Smoke Exposure: Current Smokeless Tobacco: Current Alcohol Use Standard Drinks/Week Comments Not Currently [...] making you feel afraid or unsafe? 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 Gender Identity Not on file Sexual Orientation Not on file Last Filed Vital Signs Vital Sign Reading Time Taken Comments Blood Pressure 147/94 12/17/2024 5:11 PM CDT Pulse 95 12/17/2024 5:11 PM CDT Temperature 37.1 C (98.7 F) 12/17/2024 1:37 PM CDT Respiratory Rate 16 12/17/2024 5:11 PM CDT Oxygen Saturation 97% 12/17/2024 5:11 PM CDT Inhaled Oxygen Concentration - - Weight 124.8 kg (275 lb 3.2 oz) 11/09/2024 4:44 PM CDT Height 180.3 cm (5' 11) 09/26/2023 2:45 PM CDT Body Mass Index 38.38 09/26/2023 2:45 PM CDT Plan of Treatment Health Maintenance Due Date Last Done Comments Hepatitis C Screening 2000 Pneumococcal vaccine <65 (1 of 1 - PPSV23, PCV20, or PCV21) 2006 05/23/2001, 03/22/2001, 01/11/2001 Regular Well Visit/Exam 18-64 2018 Depression Screening 11/30/2020 12/01/2019, 12/01/19 20 DTaP/Tdap/Td Vaccine (7 - Td or Tdap) 08/07/2021 08/08/2011, 10/27/2005, 02/14/2002, Additional history exists Influenza Vaccine (#1) 2024 Hepatitis B Screening Completed 05/23/2001 , 01/11/2001, 2000 Varicella Vaccines Completed 08/08/2011, 11/21/2001 HPV Vaccines Completed 03/27/2018, 10/25, 09/19/2017 Insurance [facility] CHOICE PLUS CIGNA BLUE [facility] IDPA IDPA BLUE ACCESS CHOICE [place] Advance Directives For more information, please contact: [phone] * Full Code (Latest Code Status on File) Date Activated Date Inactivated Comments 06/19/2022 1:26 PM 06/19/2022 8:43 PM * Full Code Date Activated Date Inactivated Comments 06/19/2022 1:26 PM 06/19/2022 1:26 PM * Full Code Date Activated Date Inactivated Comments 03/02/2020 5:14 AM 03/05/2020 7:37 PM * Full Code Date Activated Date Inactivated Comments 12/01/2019 5:17 PM 12/02/2019 7:04 PM Care Teams Oceanographer Physical Relationship Specialty Start Date End Date Ed Root MD [address] [place] [address] PCP - General 11/29/21 Leon Russell MD Surgeon General Surgery 03/05/20
--- OUTSIDE RECORDS SUMMARY | 2025-03-22 08:44 | XMS_ITS | Clinical Summary ---
Author Organization [facility] Address [address] [place] [address] Care Team Providers Care Manpower Development Advisor Name Role Phone Ed Root MD Primary Care Provider [phone] Source Comments [facility],non-owned Affiliates and Associated Physician Practices is amultiple site organization consisting of ambulatory clinics and hospital sitesin [place], [place], [place] and [place]. This disclosure is being madepursuant to the Care Everywhere program and may not contain all information available regarding this patient. Last updated 17.[facility] Allergies No known active allergies Medications * Be aware that medications may not be up to date on this document. Alwaysverify current medications with the patient. benzonatate (Tessalon Perles) 100 MG capsule Take 1 (one) capsule by mouth 3 times daily as needed for Cough 30 capsule 06/15/2024 Active methocarbamol (Robaxin) 750 MG tablet Take 1 (one) tablet by mouth every 6 hours as needed for Muscle Spasms 20 tablet 12/15/2024 Active naproxen (Naprosyn) 500 MG tablet Take 1 (one) tablet by mouth 2 times daily as needed for Pain 30 tablet 12/15/2024 Active acetaminophen (Tylenol) 500 MG capsule Take 2 (two) capsules by mouth every 8 hours as needed for Fever or Pain 45 capsule 12/15/2024 Active pantoprazole EC (Protonix) 40 MG tablet Take 1 (one) tablet by mouth once daily 30 tablet 01/23/2025 Active sucralfate (Carafate) 1 GM tablet Take 1 (one) tablet by mouth 4 times daily - before meals & nightly 30 tablet 01/23/2025 Active Encounters Date Type Department Care Team Description 01/23/2025 4:41 PM CDT - 01/23/2025 5:35 PM CDT Emergency ER at [place] [address] [place] [address] Chest pain, unspecified type (Primary Dx); Epigastric pain Discharge Disposition: Home or Self Care 01/23/2025 Travel from Last 3 Months Social History Tobacco Use Types Packs/Day Years [...] Sign Reading Time Taken Comments Blood Pressure 147/109 01/23/2025 2:01 PM CDT Pulse 81 01/23/2025 2:01 PM CDT Temperature 35.8 C (96.5 F) 01/23/2025 2:01 PM CDT Respiratory Rate 18 01/23/2025 2:01 PM CDT Oxygen Saturation 100% 01/23/2025 2:01 PM CDT Inhaled Oxygen Concentration - - Weight 130.5 kg (287 lb 11.2 oz) 2024 10:53 AM CDT Height 180.3 cm (5' 11) 01/23/2025 10: 53 AM CDT Body Mass Index 40.13 01/23/2025 10:53 AM CDT Plan of Treatment Health Maintenance Due Date Last Done Comments HIV SCREENING 11/16/2015 HPV VACCINE (1 - Male 3-dose series) 11/16/2015 HEPATITIS C SCREENING 11/11/2018 DTAP/TDAP/TD VACCINES (1 - Tdap) 11/16/2019 HEPATITIS B VACCINE (1 of 3 - 19+ 3-dose series) 11/16/2019 DEPRESSION SCREENING 03/26/2024 COVID-19 VACCINE (1 - 2024-2 6 season) 2024 INFLUENZA VACCINE (#1) 2024 ZOSTER VACCINE (1 of 2) 2050 HIB VACCINE Aged Out No longer eligi ble based on patient's age to complete this topic MENINGOCOCCAL (Group B) VACC INE SHARED DECISION-MAKING Aged Out No longer eligibl e based on patient's age to complete this topic MENINGOCOCCAL GROUPS A/C/Y/W VACCINE Aged Out No longer eligible b ased on patient's age to complete this topic PNEUMOCOCCAL VACCINE Aged Out No long er eligible based on patient's age to complete this topic Procedures Procedure Name Priority Date/Time Associated Diagnosis Comments CARDIAC EKG ORDER 01/26/2025 11: 17 PM FIRE CHIEF'S AIDE EKG 12-LEAD STAT 01/23/2025 4:46 PM CDT Chest pain, unspecified type TROPONIN-I HIGH SENSITIVE REFLEX 1HOUR Timed 01/23/2025 1:58 PM CDT XR CHEST 1VW PORTABLE STAT 01/23/2025 11:50 AM CDT Chest pain, unspecified type LIPASE BLOOD STAT 01/23/2025 11:33 AM CDT COMPREHENSIVE METABOLIC PANEL STAT 01/23/2025 11:33 AM CDT CBC W AUTO DIFFERENTIAL STAT 01/23/2025 11:33 AM CDT TROPONIN-I HIGH SENSITIVE BASELINE + 1HR STAT 01/23/2025 11:33 AM CDT from Last 3 Months Results * CARDIAC EKG ORDER (01/26/2025 11:17 PM FIRE CHIEF'S AIDE) Narrative 01/26/2025 11:17 PM FIRE CHIEF'S AIDE Ordered by an unspecified provider. us Scanned Document CARDIAC SERVICES ORDERABLES Fin al Result * EKG 12-LEAD (01/23/2025 4:46 PM CDT) Ventricular Rate 78 BPM [facility] Atrial Rate 78 BPM [facility] P-R Interval 170 ms [facility] QRS Duration ms 110 ms [facility] Q-T Interval ms 376 ms [facility] QTC Calculation (Bezet) 428 ms [facility]USE Calculated P [place] 34 degrees [facility]USE Calculated R [place] 38 degrees [facility]USE Calculated T [place] 33 degrees [facility] Interpretation EKG Normal sinus rhythm Normal ECG No previous ECGs available Confirmed by BARRIE ANTHONY MD ([id number]) on 01/25/2025 12:40:56 PM [facility] 01/23/2025 4:46 PM CDT 01/25/2025 12:40 PM FIRE CHIEF'S AIDE Roseanna Castañeda MD ECG ORDERABLES Edited Result - Final Performing Organization Address City/[facility]/ZIP Co de Phone Number [facility] * TROPONIN-I HIGH SENSITIVE REFLEX 1HOUR (01/23/2025 1:58 PM CDT) Troponin I High Sensitive <3 <=35 ng/L 01/23/2025 3:02 PM CDT [facility] Delta Troponin I HS 01/23/2025 3:02 PM CDT [facility] Comment:Delta value intentio abbe not calculated. Baseline to 1 hour specimen collection interval exceeded. Blood BLOOD SPECIMEN / Unknown Venipuncture / Unknown 01/23/2025 1:58 PM CDT 01/23/2025 2:29 PM CDT Roseanna Castañeda MD LAB - CHEMISTRY ORDERABLES Fi nal Result Performing Organization Address [facility] Co de Phone Number [facility] [address] [place] [address] * XR CHEST 1VW PORTABLE (01/23/2025 11:50 AM CDT) Anatomical Region Laterality Modality Chest Radiographic Jenny ging 01/23/2025 11:5 2 AM CDT Impressions 01/23/2025 11:52 AM CDT IMPRESSION: 1. No acute cardiopulmonary process is identified. > Interpreting Provider: Talon Gibson DO on 01/23/2025 11:52 AM Narrative 01/23/2025 11:52 AM CDT PROCEDURE: XR CHEST 1VW PORTABLE DATE/TIME OF EXAM: 01/23/2025 11:50 AM CLINICAL INFORMATION: Chest pain. COMPARISON: 06/15/2024. FINDINGS: Normal heart size. No vascular congestion. The lungs are clear. Bony thorax is unremarkable. Procedure Note Paige TalonDO - 01/23/2025 PROCEDURE: XR CHEST 1VW PORTABLE DATE/TIME OF EXAM: 01/23/2025 11:50 AM CLINICAL INFORMATION: Chest pain. COMPARISON: 06/15/2024. FINDINGS: Normal heart size. No vascular congestion. The lungs are clear. Bonythorax is unremarkable. IMPRESSION: 1. No acute cardiopulmonary process is identified. > Interpreting Provider: Talon Gibson DO on 01/23/2025 11:52 AM Roseanna Castañeda MD DIAGNOSTIC IMAGING ORDERABLES Final Result * TROPONIN-I HIGH SENSITIVE BASELINE + 1HR (01/23/2025 11:33 AM CDT) [facility] Troponin I High Sensitive <3 <=35 ng/L 01/23/2025 12:20 PM CDT [facility] Blood BLOOD SPECIMEN / Unknown Venipuncture / Unknown 01/23/2025 11:33 AM CDT 01/23/2025 11:40 AM CDT Roseanna Castañeda MD LAB - CHEMISTRY ORDERABLES Fi nal Result [facility] [address] [place] [address] * (ABNORMAL) CBC W AUTO DIFFERENTIAL (01/23/2025 11:33 AM CDT) Pathologist [facility] WBC 6.8 4.0 - 10.7 x10E9/L 01/23/2025 11:44 AM CDT [facility] RBC Count 5.20 4.30 - 5.80 x10E12/L 01/23/2025 11:44 AM CDT [facility] Hemoglobin 14.9 13.3 - 17.5 g/dL 01/23/2025 11:44 AM CDT [facility] Hematocrit 45.0 38.7 - 51.1 % 01/23/2025 11:44 AM CDT [facility] MCV 86.5 80.0 - 98.0 fL 01/23/2025 11:44 AM CDT [facility] MCH 28.7 26.7 - 33.6 pg 01/23/2025 11:44 AM CDT [facility] MCHC 33.1 31.7 - 36.3 g/dL 01/23/2025 11:44 AM CDT [facility] RDW-CV 12.8 11.3 - 14.8 % 01/23/2025 11:[facility] Platelet Count 289 150 - 420 x10E9/L 01/23/2025 11:44 AM CDT [facility] MPV 10.4 7.8 - 11.4 fL 01/23/2025 11:44 AM CDT [facility] Neutrophil % 55.0 41.0 - 74.0 % 01/23/2025 11:44 [facility] Lymphocyte % 26.8 17.0 - 47.0 % 01/23/2025 11:44 [facility] Monocyte % 13.7(H) 3.0 - 11.0 % 01/23/2025 11:44 [facility] Eosinophil % 3.2 0.0 - 7.0 % 01/23/2025 11:44 [facility] Basophil % 0.6 0.0 - 1.6 % 01/23/2025 11:44 AM CDT [facility] Immature Granulocytes % 0.7 0.0 - 1.0 % 01/23/2025 11:44 [facility] Neutrophil Absolute 3.73 1.60 - 7.50 x10E9/L 01/23/2025 11:44 AM CDT [facility] Lymphocyte Absolute 1.82 1.00 - 4.40 x10E9/L 01/23/2025 11:44 AM CDT [facility] Monocyte Absolute 0.93 0.15 - 1.00 x10E9/L 01/23/2025 11:44 AM CDT [facility] Eosinophil Absolute 0.22 0.00 - 0.60 x10E9/L 01/23/2025 11:44 AM CDT [facility] Basophil Absolute 0.04 0.00 - 0.13 x10E9/L 01/23/2025 11:44 AM CDT [facility] Blood BLOOD SPECIMEN / Unknown Venipuncture / Unknown 01/23/2025 11:33 AM CDT 01/23/2025 11:40 AM CDT Roseanna Castañeda MD LAB - HEMATOLOGY ORDERABLES F inal Result [facility] [address] [place] [id number] * COMPREHENSIVE METABOLIC PANEL (01/23/2025 11:33 AM CDT) Pathologist [facility] Glucose 77 70 - 99 mg/dL 01/23/2025 1:29 PM [facility] Sodium 139 136 - 145 mmol/L 01/23/2025 1:29 PM [facility] Potassium 4.1 3.5 - 5.1 mmol/L 01/23/2025 1:29 PM [facility] Chloride 106 98 - 107 mmol/L 01/23/2025 1:29 PM [facility] CO2 22 22 - 29 mmol/L 01/23/2025 1:29 PM [facility] Calcium 9.1 8.4 - 10.4 mg/dL 01/23/2025 1:29 PM [facility] Anion Gap 11 6 - 16 mmol/L 01/23/2025 1:29 PM [facility] BUN 12 5.3 - 18.7 mg/dL 01/23/2025 1:29 PM [facility] Creatinine 0.93 0.60 - 1.20 mg/dL 01/23/2025 1:29 PM [facility] Alkaline Phosphatase 83 40 - 150 U/L 01/23/2025 1:29 PM [facility] ALT 44 6 - 57 U/L 01/23/2025 1:29 PM [facility] AST 33 10 - 48 U/L 01/23/2025 1:29 PM [facility] Protein Total 7.8 6.4 - 8.3 gm/dL 01/23/2025 1:29 PM [facility] Albumin 4.3 3.1 - 4.5 gm/dL 01/23/2025 1:29 PM [facility] Bilirubin Total 0.4 0.2 - 1.2 mg/dL 01/23/2025 1:29 PM CDT [facility] eGFR by CKD-EPI >90 >=90 mL/min/1.7 3 m2 01/23/2025 1:29 PM CDT [facility] Comment:Estimated Glomerular Filtration Rate (eGFR) calculated using the CKD-EPI Creatinine Equation (2020), per the National Kidney Foundation and [place] [employer] Nephrology recommendations. Blood BLOOD SPECIMEN / Unknown Venipuncture / Unknown 01/23/2025 11:33 AM CDT 01/23/2025 11:40 AM CDT Roseanna Castañeda MD LAB - CHEMISTRY ORDERABLES Fi nal Result [facility] [address] [id number] * LIPASE BLOOD (01/23/2025 11:33 AM CDT) Lipase 17 <60 U/L 01/23/2025 12:13 PM CDT [facility] Blood BLOOD SPECIMEN / Unknown Venipuncture / Unknown 01/23/2025 11:33 AM CDT 01/23/2025 11:40 AM CDT Rosalino RAM LAB - CHEMISTRY ORDERABLES Final Result [facility] [address] [id number] from Last 3 Months Insurance [facility] [place] Care Teams Manpower Development Advisor Relationship Specialty Start Date End Date Ed Root MD [address] [place] [address] PCP - General Family Medicine 06/15/24
--- OUTSIDE RECORDS SUMMARY | 2025-03-22 08:44 | XMS_ITS | Clinical Summary ---
Author Organization [employer] [facility] Address [address] [place] [address] Care Team Providers Care Research Chemical Engineer Name Role Phone Unavailable Primary Care Provider Unavailabl e Social History Tobacco Use Types Packs/Day Years Used Date Smoking Tobacco: Never Assessed Sex and Gender Information Value Date Recorded Sex Assigned at Not on file Legal Sex Male 9:06 PM EST Gender Identity Not on file Sexual Orientation Not on file Plan of Treatment Not on file Medical Devices Not on file Insurance [employer]
[2025-03-22 08:46] VITALS: BP 137/86; PULSE 104; RESP 20; TEMP 36.9; O2SAT 99
--- NOTE | 2025-03-22 09:35 | ED_ITS ---
HPI - URI/Sore Throat General Chief Complaint: Upper Respiratory Infection Stated Complaint: throat/upset stomach Time Seen by Provider: 03/22/25 09:35 Source: patient and RN notes reviewed Mode of arrival: ambulatory Limitations: no limitations History of Present Illness HPI Narrative: 24-year-old male patient presents Express [facility] complaining of upper respiratory symptoms for approximately 4 days now. Patient reports having cough, congestion, sore throat, runny nose, diarrhea, nausea. Patient has any fevers, body aches, chills, abdominal pain, vomiting, chest pain, breathing problems, or any other symptoms. Patient taking [id number] cold and flu medications along with nasal spray without relief. Patient reports his diarrhea few times a day. Patient has been drinking plenty of fluids. Related Data Home Medications ?Medication ?Instructions ?Recorded ?Confirmed ?Last Taken ?Type naproxen 500 mg tablet mg 10/22/24 Unknown History prochlorperazine maleate 10 mg mg 10/22/24 Unknown Hi story tablet acetaminophen 500 mg capsule mg 03/22/25 Unknown Hist ory (Mapap (acetaminophen)) amlodipine 5 mg tablet mg 03/22/25 Unknown History Allergies Allergy/AdvReac Type Severity Reaction Status Date / Time No Known Allergies Allergy Verified 03/22/25 09:09 Review of Systems Review of Systems: CONSTITUTIONAL: Denies fever, chills, or sweats. EYES: Denies visual changes, redness, or discharge. ENT: Denies positive for rhinorrhea, congestion, sore throat. Negative for otalgia. CARDIOVASCULAR: Denies chest pain, palpitations, or edema. RESPIRATORY: Positive for cough. Negative for wheezing or Dyspnea. GASTROINTESTINAL: Denies abdominal pain, or vomiting. Positive for nausea and diarrhea. GENITOURINARY: Denies dysuria or hematuria. SKIN: Denies rash or itching. MUSCULOSKELETAL: Denies back pain, joint pain, or myalgia. NEUROLOGIC: Denies headache, numbness, or weakness. PSYCHIATRIC: Denies anxiety or depression. All other systems reviewed are negative, except as documented in HPI. [facility] Past Medical History Medical History Anxiety Depression Surgical History Surgical History History of excision of pilonidal cyst ~ end 2019 History of tonsillectomy and adenoidectomy Family History Family History Other Cancer Diabetes mellitus Hypertension Social History Social History Smoking status: Current every day smoker Tobacco type: e-cigarettes/vaping Alcohol intake: current Alcohol use details: socially Lack of Transportation: No Lack of Food: Sometimes True Current Housing: I Have Housing Concerned About Future Housing: No Difficulty Paying Gas/Electric Bills: No Difficulty Paying for Meds: No Currently Unemployed: No Education: High School Diploma/GED Difficulty w/ Childcare or Family Care: No Living arrangements: with family Occupation/Education: occupation 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 There is no relevant family history pertinent to the patient complaint. Exam Narrative: GENERAL: This is a well-nourished, well-developed adult, in no apparent dist ress. They are non ill-appearing, nontoxic appearing. HEAD: normocephalic, atraumatic. EYES: Sclera clear/white. Conjunctiva normal. Vision is grossly intact. Extraocular movements intact EARS: External ears normal, auditory canals clear and without drainage, TMs normal without perforation. Hearing grossly intact. NOSE: External nose normal with no obvious nasal discharge, nasal turbinates er ythematous, no rhinorrhea. THROAT: Mucous membranes moist, posterior pharynx erythematous PND present. Uvula midline. NECK: Neck supple, non-tender without lymphadenopathy, masses or thyromegaly. CARDIOVASCULAR: Regular rate and rhythm without murmurs, gallops, or rubs. RESPIRATORY: Clear to auscultation. Breath sounds equal bilaterally. No wheezes, rales, or rhonchi. GASTROINTESTINAL: Abdomen soft, non-tender, nondistended. Bowel sounds are active. No hepato-splenomegaly, or palpable masses. No guarding or rigidity. SKIN: warm, Dry, intact with no suspicious lesions or rash, good texture and turgor. NEURO: awake, alert, and oriented to person, place and time. There were no obvious focal neurologic abnormalities. EXTREMITIES: No joint tenderness, effusion, or edema noted. BACK: Nontender without deformity. Course Course Level of Care: Express Care Visit Vital Signs Vital signs: Vital Signs Temperature 98.5 F 03/22/25 08:46 Pulse Rate 104 H 03/22/25 08:46 Respiratory Rate 20 03/22/25 08:46 Blood Pressure 137/86 03/22/25 08:46 Pulse Oximetry 99 03/22/25 08:46 Oxygen Delivery Room Air 03/22/25 08:46 Temperature 98.5 F 03/22/25 08:46 Pulse Rate 104 H 03/22/25 08:46 Respiratory Rate 20 03/22/25 08:46 Blood Pressure 137/86 03/22/25 08:46 Pulse Oximetry 99 03/22/25 08:46 Oxygen Delivery Room Air 03/22/25 08:46 MDM MDM Narrative Medical decision making narrative: Rapid COVID, flu, strep were negative. A throat culture is pending. Symptoms likely viral in etiology. Given patient's severity of a sore throat give a 1 time dose of dexamethasone. Will also send patient home with benzonatate tablets for cough and Zofran as needed for nausea and vomiting. Discussed supportive care. Discussed physical exam findings. Advised supportive measures and signs/symptoms to go to the ER. Pt is appropriate for outpt treatment and f/u. Differential Diagnosis Differential Diagnosis: Differential diagnostic considerations for upper respiratory infection include upper respiratory infection, croup, otitis media, sinusitis, viral infection, bronchitis, influenza, pharyngitis, strep, uvulitis, gastroenteritis, colitis. Lab Data [facility] Lab Attestation statement: I personally reviewed the patient's lab results. Labs: Lab Results 03/22/25 03/22/25 Range/Units 09:35 09:36 POC Influenza A Ag Negative (Negative) POC Influenza B Ag Negative (Negative) POC SARS CoV-2 Ag Negative (Negative) POC Grp A Strep Screen Negative (Negative) Critical Care Time Critical Care Time Critical Care Time: No Discharge Plan Discharge Clinical Impression: Viral illness Patient Disposition: Home Condition: Stable Instructions: Antibiotic Form, Viral Syndrome (ED) Additional Instructions: Your rapid strep swab was negative today at [facility]. You will be notified in a few days if the culture comes back positive for strep, and appropriate antibiotics will be called in for you at that time. Your symptoms are likely due to a viral illness, which is not treated with antibiotics. Viral symptoms can be present for up to 7-10 days. Take Tylenol or Motrin as needed for fever or pain. Follow instructions on the bottle. It is not recommended to treat the diarrhea and it to run its course, consider eating a diet easier on the stomach such as oatss, toatss, rice, applesauce, etc. take the Zofran as needed for nausea and vomiting. Take the 1 time dose of dexamethasone for your sore throat. Take the benzonatate tablets as needed for cough. Rest and stay hydrated. Supplement with electrolyte drinks such as Pedialyte Gatorade. Follow up with your PCP in 5-7 days if symptoms are not improving. Go to the ER immediately if you developed chest pain, uncontrolled vomiting, worsening diarrhea concerns dehydration, difficulty breathing or swallowing, or any serious concerns. Patient Language: Albanian Prescriptions: New benzonatate 200 mg capsule 200 mg PO TID PRN (Reason: cough) Qty: 20 0RF dexamethasone 2 mg tablet 10 mg PO ONCE 1 Days Qty: 5 0RF ondansetron 4 mg tablet,disintegrating 4 mg PO Q8H PRN (Reason: nausea and vomiting) Qty: 12 0RF No Action prochlorperazine maleate 10 mg tablet naproxen 500 mg tablet amlodipine 5 mg tablet acetaminophen [Mapap (acetaminophen)] 500 mg capsule Follow-up/Referrals: Ed Root MD [Primary Care Provider, Family Practice] Stand Alone Forms: Work/School Release IP Time of Disposition: 09:43
[2025-03-22 09:37] LABS: EDSTREPNEGPOS1 Negative (Negative)
[2025-03-22 09:37] LABS: EDCOVIDSCREEN Negative (Negative); EDINFLUASCREEN Negative (Negative); EDINFLUBSCREEN Negative (Negative)
== END 2025-03-22 09:49 | disposition home or self-care (01) ==
PROVIDERS: PCP Emergency Medicine
DX: B34.9 Viral infection, unspecified (principal); Z20.822 Contact with and (suspected) exposure to COVID-19; F17.290 Nicotine dependence, other tobacco product, uncomplicated
CPT/HCPCS: 87081; 87426; 87804; 87880; 99213; G0463